=== PATIENT | female | born 1995 | race Caucasian/White ===

== ENCOUNTER 2017-06-10 22:53 | Inpatient (IN) ==
[2017-06-10 23:19] LABS: Basophils % 0.1 %; Hematocrit 40.3 % (35.3-44.9); Hemoglobin 13.8 g/dL (11.5-15.4); Immature Granulocytes % 0.3 % (0-4); Lymphocytes % 8.4 %; Mean Corpuscular HGB Conc 34.2 g/dL (31.6-35.5); Mean Corpuscular Hemoglobin 30.1 pg (28.0-33.3); Mean Corpuscular Volume 87.8 fL (83.0-100.0); Mean Platelet Volume 9.2 fL (9.4-12.4); Monocytes # 0.2 K/mcL (0.0-1.3); Monocytes % 1.7 %; Neutrophils # 10.4 K/mcL (1.6-8.9); Platelet Count 332 K/mcL (140-400); Red Blood Count 4.59 M/mcL (3.82-4.97); Red Cell Distribution Width 12.2 % (11.5-14.5); Segmented Neutrophils % 89.5 %
[2017-06-10 23:27] LABS: Bilirubin,Urine Negative (Negative); Blood,Urine Negative (Negative); Clarity,Urine Clear (Clear); Color,Urine Yellow (Yellow); Glucose,Urine (UA) 250 mg/dL (Normal); Ketones,Urine Negative (Negative); Leukocyte Esterase,Urine Negative (Negative); Nitrite,Urine Negative (Negative); PH,Urine 6.5 pH Units (5.0-8.0); Protein,Urine Negative (Neg-Trace); Specific Gravity,Urine 1.008 (1.010-1.025); Urobilinogen,Urine Normal (Normal)
[2017-06-10 23:36] LABS: Alanine Aminotransferase 22 Units/L (0-55); Albumin 3.8 g/dL (3.5-5.0); Alkaline Phosphatase 117 Units/L (38-126); Amylase 265 Units/L (25-125); Aspartate Amino Transferase 24 Units/L (5-34); BUN/Creatinine Ratio 9 (6-26); Bilirubin,Direct 0.2 mg/dL (0.0-0.5); Bilirubin,Indirect 0.2 mg/dL (0.0-1.2); Bilirubin,Total 0.4 mg/dL (0.2-1.2); Blood Urea Nitrogen 8 mg/dL (7-20); Calcium 9.4 mg/dL (8.6-10.8); Carbon Dioxide 18 mEq/L (19-29); Chloride 111 mEq/L (98-109); Globulin 3.7 g/dL (2.4-3.5); Glucose 208 mg/dL (70-99); Lipase 358 Units/L (8-78); Osmolality,Calculated 294 (280-300); Potassium 4.2 mEq/L (3.5-4.5); Sodium 140 mEq/L (136-145); Total Protein 7.5 g/dL (6.0-8.3); eGFR For African Americans > 60 (> 60); eGFR For Non-African Americans > 60 (> 60)
[2017-06-10] MEDS ORDERED: *HR* HYDROmorphone (PF) 1 MG/ML SYRINGE IVP ONE (23:43)
[2017-06-10] MEDS ORDERED: 0.9 % Sodium Chloride 1,000 ML IVC ONE (23:43)
--- NOTE | 2017-06-11 00:25 | Emergency Department Note ---
Disposition Clinical Impression: Pancreatitis Qualifiers: Chronicity: acute Pancreatitis type: unspecified pancreatitis type Acute pancreatitis complication: unspecified Qualified Code(s): K85.90 - Acute pancreatitis without necrosis or infection, unspecified Disposition: Admitted As Inpatient Condition: Good Time of Disposition: 00:59 Abdominal Pain HPI - General Chief Complaint: ED Abdominal Pain Stated Complaint: Abd/back pain s/p ERCP procedure Time Seen by Provider: 06/10/17 23:17 Source: patient Mode of arrival: ambulatory Limitations: no limitations Nursing Notes Reviewed: Yes Vital Signs Reviewed: Yes - History of Present Illness HPI Narrative: Patient presents to the ED with the chief complaint of abdominal pain. 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 Has had a previous cholecystectomy. States that the procedure was unable to be finished because her sphincter of Azam was too small. States that when she was discharged home. She had some discomfort and nausea. However , her pain has progressed to a very sharp stabbing pain radiating through to her back. She has also had nausea and vomiting. She has been able to keep down oral fluids. Denies any fever, chest pain or shortness of breath. Reports that she was told to come to the ER if her symptoms worsen. Pain Scale: 7 - Related Data Home Medications Medication Instructions Recorded Confirmed No Known Home Drugs 06/10/17 06/10/17 Allergies Allergy/AdvReac Type Severity Reaction Status Date / Time cephalexin [From Keflex] Allergy Rash Verified 06/10/17 23:01 All systems ED: reviewed and negative except as stated. 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 Psychiatric history: Reports: anxiety - Social History Smoking status: Never smoker Alcohol use: Reports: none Drug use: Reports: none Physical Exam - General Limitations: no limitations General appearance: alert, in no apparent distress - Head Head exam: atraumatic, normocephalic, normal inspection - ENT ENT exam: normal exam, normal oropharynx, mucous membranes moist - Respiratory Respiratory exam: Present: normal lung sounds bilaterally - Cardiovascular Cardiovascular exam: Present: regular rate, normal rhythm, normal heart sounds - Abdominal Exam Abdominal exam: Present: soft, tenderness, guarding. Absent: distention Abdominal tenderness: Present: epigastrium, moderate - Extremities Exam Extremities exam: Present: normal inspection, full ROM. Absent: tenderness, pedal edema - Neurological Exam Neurological exam: Present: alert, oriented X3 - Psychiatric Psychiatric exam: Present: normal affect, normal mood - Skin Skin exam: Present: warm, dry, intact, normal color Course Course Narrative: 21 -year-old female status post ERCP today. Has symptoms of pancreatitis. We will also CT abdomen to rule out perforation. Patient is guarding on exam. We will also give fluids and pain medication. Likely admission - Reevaluation(s) Reevaluation #1: CT does not show any perforation or abscess. Does show some simple free fluid, likely unrelated to her recent procedure. No CT evidence of pancreatitis, but clinically the patient does have pancreatitis, so we will admit for further evaluation. Time: 00:58 Vital Signs Temperature 98 F 06/10/17 22:57 Pulse Rate 119 06/10/17 22:57 Respiratory Rate 20 06/10/17 22:57 Blood Pressure 109/75 06/10/17 22:57 O2 Sat by Pulse Oximetry 97 06/10/17 22:57 Temperature 98 F 06/10/17 22:57 Pulse Rate 71 06/11/17 00:58 Respiratory Rate 18 06/11/17 01:44 Blood Pressure 93/58 06/11/17 01:44 O2 Sat by Pulse Oximetry 96 06/11/17 00:58 Oxygen Delivery Oxygen Delivery Room Air Abdominal Pain - Lab Data Result diagrams: 06/10/17 23:14 06/10/17 23:14 Lab Results 06/10/17 06/10/17 06/10/17 Range/Units 23:14 23:14 23:17 WBC 11.6 H (4.3-11.1) K/mcL RBC 4.59 (3.82-4.97) M/mcL Hgb 13.8 (11.5-15.4) g/dL Hct 40.3 (35.3-44.9) % MCV 87.8 (83.0-100.0) fL MCH 30.1 (28.0-33.3) pg MCHC 34.2 (31.6-35.5) g/dL RDW 12.2 (11.5-14.5) % Plt Count 332 (140-400) K/mcL MPV 9.2 L (9.4-12.4) fL Immature Gran % 0.3 (0-4) % Seg Neutrophils % 89.5 % Lymphocytes % 8.4 % Monocytes % 1.7 % Eosinophils % 0.0 % Basophils % 0.1 % Neutrophils # 10.4 H (1.6-8.9) K/mcL Lymphocytes # 1.0 (0.6-4.6) K/mcL Monocytes # 0.2 (0.0-1.3) K/mcL Eosinophils # 0.0 (0.0-0.6) K/mcL Basophils # 0.0 (0.0-0.2) K/mcL Sodium 140 (136-145) mEq/L Potassium 4.2 (3.5-4.5) mEq/L Chloride 111 H (98-109) mEq/L Carbon Dioxide 18 L (19-29) mEq/L BUN 8 (7-20) mg/dL Creatinine 0.90 (0.57-1.11) mg/dL Est GFR ( Amer) > 60 (> 60) Est GFR (Non-Af Amer) > 60 (> 60) BUN/Creatinine Ratio 9 (6-26) Glucose 208 H (70-99) mg/dL Calculated Osmolality 294 (280-300) Calcium 9.4 (8.6-10.8) mg/dL Total Bilirubin 0.4 (0.2-1.2) mg/dL Direct Bilirubin 0.2 (0.0-0.5) mg/dL Indirect Bilirubin 0.2 (0.0-1.2) mg/dL AST 24 (5-34) Units/L ALT 22 (0-55) Units/L Alkaline Phosphatase 117 (38-126) Units/L Serum Total Protein 7.5 (6.0-8.3) g/dL Albumin 3.8 (3.5-5.0) g/dL Globulin 3.7 H (2.4-3.5) g/dL Albumin/Globulin Ratio 1.0 L (1.1-2.2) Amylase 265 H (25-125) Units/L Lipase 358 H (8-78) Units/L Urine Color (Yellow) Urine Clarity (Clear) Urine pH (5.0-8.0) pH Units Ur Specific Junction (1.010-1.025) Urine Protein (Neg-Trace) mg/dL Urine Glucose (UA) (Normal) mg/dL Urine Ketones (Negative) mg/dL Urine Blood (Negative) Urine Nitrite (Negative) Urine Bilirubin (Negative) Urine Urobilinogen (Normal) mg/dL Ur Leukocyte Esterase (Negative) Ur Culture Indicated? (NO) Urine Test Negative (Negative) 06/10/17 Range/Units 23:19 WBC (4.3-11.1) K/mcL RBC (3.82-4.97) M/mcL Hgb (11.5-15.4) g/dL Hct (35.3-44.9) % MCV (83.0-100.0) fL MCH (28.0-33.3) pg MCHC (31.6-35.5) g/dL RDW (11.5-14.5) % Plt Count (140-400) K/mcL MPV (9.4-12.4) fL Immature Gran % (0-4) % Seg Neutrophils % % Lymphocytes % % Monocytes % % Eosinophils % % Basophils % % Neutrophils # (1.6-8.9) K/mcL Lymphocytes # (0.6-4.6) K/mcL Monocytes # (0.0-1.3) K/mcL Eosinophils # (0.0-0.6) K/mcL Basophils # (0.0-0.2) K/mcL Sodium (136-145) mEq/L Potassium (3.5-4.5) mEq/L Chloride (98-109) mEq/L Carbon Dioxide (19-29) mEq/L BUN (7-20) mg/dL Creatinine (0.57-1.11) mg/dL Est GFR ( Amer) (> 60) Est GFR (Non-Af Amer) (> 60) BUN/Creatinine Ratio (6-26) Glucose (70-99) mg/dL Calculated Osmolality (280-300) Calcium (8.6-10.8) mg/dL Total Bilirubin (0.2-1.2) mg/dL Direct Bilirubin (0.0-0.5) mg/dL Indirect Bilirubin (0.0-1.2) mg/dL AST (5-34) Units/L ALT (0-55) Units/L Alkaline Phosphatase (38-126) Units/L Serum Total Protein (6.0-8.3) g/dL Albumin (3.5-5.0) g/dL Globulin (2.4-3.5) g/dL Albumin/Globulin Ratio (1.1-2.2) Amylase (25-125) Units/L Lipase (8-78) Units/L Urine Color Yellow (Yellow) Urine Clarity Clear (Clear) Urine pH 6.5 (5.0-8.0) pH Units Ur Specific Junction 1.008 L (1.010-1.025) Urine Protein Negative (Neg-Trace) mg/dL Urine Glucose (UA) 250 H (Normal) mg/dL Urine Ketones Negative (Negative) mg/dL Urine Blood Negative (Negative) Urine Nitrite Negative (Negative) Urine Bilirubin Negative (Negative) Urine Urobilinogen Normal (Normal) mg/dL Ur Leukocyte Esterase Negative (Negative) Ur Culture Indicated? NO (NO) Urine Test (Negative) Attestation Statement - Attestation Attestation: I, Inderjit Salazar, examined this patient and my medical decision-making was reviewed with the FIELD SERVICE REPRESENTATIVE/PA/Advanced Practice Nurse/Resident Physician. I agree with the documented findings, disposition and treatment plan as described except to the extent set forth below. 21-year-old female presents to emergency Department with concerns of abdominal pain. Patient states her pain is in the epigastrium and constant. Patient had an ERCP performed today for stenting of her sphincter Oddi however he was unable to be performed secondary to the size of the opening. Patient started developing increasing epigastric pain after the procedure. She denies fever, syncope, chest pain, palpitations. CT of the abdomen and pelvis does not show evidence of pneumoperitoneum. Patient does have an elevated lipase and she will be treated with pain medication and IV fluids.
[2017-06-11] MEDS ORDERED: *HR* Morphine 2 MG/ML SYRINGE IVP ONE (04:11)
[2017-06-11] MEDS ORDERED: Ondansetron 4 MG/2 ML VIAL IM ONE (04:12)
[2017-06-11] MEDS ORDERED: *HR* Morphine 2 MG/ML SYRINGE IVP PRN ×2 (07:41→07:47)
[2017-06-11] MEDS ORDERED: Naloxone 0.4 MG/ML INJ IVP PRN (07:47)
[2017-06-11] MEDS ORDERED: Acetaminophen 325 MG TABLET PO PRN (07:47)
[2017-06-11] MEDS ORDERED: HydrOXYzine SYP 10 MG/5 ML UDC PO PRN (07:50)
--- NOTE | 2017-06-11 07:53 | Internal Med History&Physical ---
Date of Encounter: 06/11/17 Time of Encounter: 07:51 Assessment and Plan (1) Pancreatitis Current visit: Yes Status: Acute Acute mild post ERCP pancreatitis May try clear liquids, back to nothing by mouth if not tolerating diet Start IV hydration, monitor lipase Morphine for pain, Zofran as needed Protonix IV for GI prophylaxis and early ambulation for DVT prophylaxis. The patient will be admitted for observation. Full code. Time spent this admission 40 minutes. Qualifiers: Chronicity: acute Pancreatitis type: unspecified pancreatitis type Acute pancreatitis complication: unspecified Qualified Code(s): K85.90 - Acute pancreatitis without necrosis or infection, unspecified (2) Sphincter of Oddi dysfunction Current visit: Yes Status: Acute Follow up as outpatient with GI (3) Anxiety Current visit: Yes Status: Acute Atarax as needed (4) GERD (gastroesophageal reflux disease) Current visit: Yes Status: Acute Protonix IV Qualifiers: Esophagitis presence: without esophagitis Qualified Code(s): K21.9 - Gastro -esophageal reflux disease without esophagitis (5) Leukocytosis Current visit: Yes Status: Acute Qualifiers: Leukocytosis type: unspecified Qualified Code(s): D72.829 - Elevated white blood cell count, unspecified (6) Hyperglycemia Current visit: Yes Status: Acute Likely related to pancreatitis Internal Medicine - H&P: HPI Chief complaint: Abdominal pain Admitted From: Emergency Dept History of present illness: Ms. Ding is a 21 year old female with a past medical history of Oddi's sphincter dysfunction, gastritis, GERD, anxiety who came to the emergency room complaining of severe abdominal pain that started to get worse yesterday. She had an ERCP, unfortunately the procedure was not able to be completed as her sphincter of Oddi was too small/unable to cross the CBD. The pain started to get worse around 6 PM, she was complaining of constant nausea bundle cell count was 11.6 CO2 18 glucose 208 [address]ase [address] scan of the abdomen did not show any acute pancreatitis but showed some small free fluid in the pelvis. Patient was very symptomatic complaining of epigastric pain radiating to the back 6 out of 10 in intensity accompanied with some nausea and episodic diarrhea. Blood pressure was 90/59. The patient still complain of severe pain and was not able to keep anything down causes of the pain. No fevers, no headaches. Past Med Surg Social Fam HX - Past Medical History Medical history: asthma, GERD, other (Oddi's sphincter dysfunction, anxiety, hyperhidrosis, nephrolithiasis, gastritis) Psychiatric history: anxiety - Past Surgical History Surgical History: cholecystectomy, other (Left knee surgery, tonsillectomy, adenoidectomy) - Social History Smoking Status: Never smoker Smokeless Tobacco Status: No Alcohol use: none Drug use: none - Family History Mother Adopted: [place]: GIOVANNI Age: 47 Family Member Ethnicity: Non- Living Status: Still Living Hx Family Cardiac Disorders: No Hx Family Respiratory Disorders: No Hx Family Cancer: Yes (CERVICAL) Hx Family GI Disorders: No Hx Family Genitourinary Disorders: No Hx Family Endocrine Disorder: Yes (THYROID PROBLEMS) Hx Family Musculoskeletal Disorders: No Hx Family Neuromuscular Disorders: No Hx Family Neurologic Disorders: No Hx Family HEENT Disorders: No Hx Family Autoimmune Disorders: No Hx Family Reproductive Disorders: No Hx Family Psychosocial Disorders: No Hx Family Medical Disorders: No - Additional Family History Additional family history: Brother with Asperger's, father hypertension and borderline diabetes. Mother with hypothyroidism and depression fibromyalgia kidney stones uterine and cervical cancer Internal Medicine - H&P: Meds No Known Home Drugs 06/10/17 [History] 3 Allergy/AdvReac Type Severity Reaction Status Date / Time cephalexin [From Keflex] Allergy Rash Verified 06/10/17 23:01 All Systems PM: A 10-system review of systems was performed and is negative for pertinent findings except as documented above in the HPI. Review of systems: Denies any chest or shortness of breath, other systems out of the 10 review were negative - Constitutional Vitals: Temp Pulse Resp BP Pulse Ox 98.0 F 56 16 95/58 98 06/11/17 07:24 06/11/17 07:24 06/11/17 07:24 06/11/17 07:24 06/11/17 07:24 General appearance: Present: A&O X 3 (Dry mucosa) - Head Head exam: Present: atraumatic, normocephalic - Eye Eye exam: Present: PERRL, conjuntiva pink, sclera anicteric Pupils: Present: PERRL - Neck Neck exam general surgery: Present: supple, trachea midline. Absent: lymphadenopathy - Respiratory Respiratory exam: Present: CTAB. Absent: accessory muscle use, rales, rhonchi, wheezes - Cardiovascular Cardiovascular exam: Present: RRR, +S1, +S2. Absent: diastolic murmur, gallop, rubs, systolic murmur - GI/Abdominal GI/Abdominal exam: Present: normal bowel sounds, soft, tenderness (Epigastric tenderness, no rebound), no peritoneal signs. Absent: distended - Extremities Exam Extremities exam: Present: warm, radial pulses palpable and symmetrical. Absent : calf tenderness, cyanotic, pedal edema - Neurological Exam Neurological exam: Present: CN II-XII intact, oriented X3, no focal deficits. Absent: pronater drift, facial droop, speech deficit - Skin Skin exam: Present: dry, intact Internal Med - H&P Results - Labs CBC & Chem 7: 06/10/17 23:14 06/10/17 23:14 - Impressions ITS Impressions Abdomen/Pelvis CT 06/11/17 23:43 IMPRESSION: 1. Small simple free fluid in the pelvis. This may be physiologic in this patient age group. Otherwise, unremarkable examination. No CT evidence of pancreatitis or peripancreatic fluid collection. D/ / 06/11/2017 07:06:41 José Miguel Clark MD / paulette Interpreting Provider: José Miguel Clark MD
[2017-06-11] MEDS: Pantoprazole 40 MG VIAL IVP SCH (08:38)
[2017-06-11] MEDS: *HR* Morphine 2 MG/ML SYRINGE IVP PRN ×4 (08:39→20:25)
[2017-06-11] MEDS: 0.9 % Sodium Chloride 1,000 ML IVC SCH ×2 (08:39→20:25)
[2017-06-11] MEDS: Ondansetron 4 MG/2 ML VIAL IVP PRN ×4 (08:39→21:12)
--- NOTE | 2017-06-11 14:59 | Event Note ---
Date of Encounter: 06/11/17 Time of Encounter: 15:00 Pt seen, with epigastric/upper back pain. O/E Tander epigastric area. A;Post ERCP apncraetitis Rec: IV fluids, pain control, nPO
[2017-06-12] MEDS: *HR* Morphine 2 MG/ML SYRINGE IVP PRN ×5 (00:47→20:49)
[2017-06-12] MEDS: 0.9 % Sodium Chloride 1,000 ML IVC SCH ×5 (02:05→21:56)
[2017-06-12] MEDS: Ondansetron 4 MG/2 ML VIAL IVP PRN ×4 (02:07→20:48)
[2017-06-12 05:26] LABS: Hematocrit 32.1 % (35.3-44.9); Mean Corpuscular HGB Conc 32.4 g/dL (31.6-35.5); Mean Corpuscular Hemoglobin 29.7 pg (28.0-33.3); Mean Corpuscular Volume 91.7 fL (83.0-100.0); Mean Platelet Volume 9.6 fL (9.4-12.4); Platelet Count 222 K/mcL (140-400); Red Cell Distribution Width 12.8 % (11.5-14.5)
[2017-06-12 05:29] LABS: Hemoglobin 10.4 g/dL (11.5-15.4)
[2017-06-12 05:38] LABS: BUN/Creatinine Ratio 14 (6-26); Blood Urea Nitrogen 10 mg/dL (7-20); Carbon Dioxide 23 mEq/L (19-29); Chloride 114 mEq/L (98-109); Cholesterol 98 mg/dL (< 200); Glucose 82 mg/dL (70-99); HDL Cholesterol 33 mg/dL (40-59); LDL Cholesterol,Calculated 40 mg/dL (0-99); Lipase 90 Units/L (8-78); Osmolality,Calculated 288 (280-300); Potassium 3.7 mEq/L (3.5-4.5); Sodium 140 mEq/L (136-145); Triglycerides 126 mg/dL (< 150); eGFR For African Americans > 60 (> 60); eGFR For Non-African Americans > 60 (> 60)
[2017-06-12 05:45] LABS: Calcium 7.9 mg/dL (8.6-10.8)
--- NOTE | 2017-06-12 08:42 | Internal Med Progress Note ---
Date of Encounter: 06/12/17 Time of Encounter: 08:40 - Assessment and plan (1) Pancreatitis Current Visit: Yes Status: Acute Assessment and plan: May try clear liquids when improving, back to nothing by mouth as she is not tolerating diet Continue IV hydration Morphine for pain, Zofran as needed Protonix IV for GI prophylaxis Qualifiers: Chronicity: acute Pancreatitis type: unspecified pancreatitis type Acute pancreatitis complication: unspecified Qualified Code(s): K85.90 - Acute pancreatitis without necrosis or infection, unspecified (2) Sphincter of Oddi dysfunction Current Visit: Yes Status: Acute Assessment and plan: Followed by GI (3) Anxiety Current Visit: Yes Status: Acute Assessment and plan: Atarax as needed (4) GERD (gastroesophageal reflux disease) Current Visit: Yes Status: Acute Assessment and plan: Protonix IV Qualifiers: Esophagitis presence: without esophagitis Qualified Code(s): K21.9 - Gastro -esophageal reflux disease without esophagitis (5) Leukocytosis Current Visit: Yes Status: Acute Qualifiers: Leukocytosis type: unspecified Qualified Code(s): D72.829 - Elevated white blood cell count, unspecified (6) Hyperglycemia Current Visit: Yes Status: Acute Assessment and plan: Likely secondary to pancreatitis, resolved - Subjective Interval history: Epigastric pain has increased to 7 out of 10, pain is radiating to the back. Feels very nauseous, denies any fevers or chills no chest pain or shortness of breath, had diarrhea before - Constitutional Vitals: Temp Pulse Resp BP Pulse Ox 98.3 F 72 14 100/62 94 06/12/17 07:50 06/12/17 07:50 06/12/17 07:50 06/12/17 07:50 06/12/17 07:50 General appearance: Present: A&O X 3 (Dry mucosa) - Head Head exam: Present: atraumatic, normocephalic - Eye Eye exam: Present: PERRL, conjuntiva pink, sclera anicteric Pupils: Present: PERRL - Neck Neck exam general surgery: Present: supple, trachea midline. Absent: lymphadenopathy - Respiratory Respiratory exam: Present: CTAB. Absent: accessory muscle use, rales, rhonchi, wheezes - Cardiovascular Cardiovascular exam: Present: RRR, +S1, +S2. Absent: diastolic murmur, gallop, rubs, systolic murmur - GI/Abdominal GI/Abdominal exam: Present: distended, normal bowel sounds, soft, tenderness ( Epigastric tenderness, no rebound), no peritoneal signs - Extremities Exam Extremities exam: Present: warm, radial pulses palpable and symmetrical. Absent : calf tenderness, cyanotic, pedal edema - Neurological Exam Neurological exam: Present: CN II-XII intact, oriented X3, no focal deficits. Absent: pronater drift, facial droop, speech deficit - Skin Skin exam: Present: dry, intact Internal Medicine: Result - Labs CBC & Chem 7: 06/12/17 04:27 06/12/17 04:27 Labs: Short CBC 06/12/17 Range/Units 04:27 WBC 12.5 H (4.3-11.1) K/mcL Hgb 10.4 L D (11.5-15.4) g/dL Hct 32.1 L (35.3-44.9) % Plt Count 222 (140-400) K/mcL BMP 06/12/17 04:27 Sodium 140 Potassium 3.7 Chloride 114 H Carbon Dioxide 23 BUN 10 Creatinine 0.74 Glucose 82 Calcium 7.9 L D Consult Discharge Plan - Plan Referrals: Adri Aguilera, AIR CONDITIONER INSTALLER HELPER [Primary Care Provider] -
[2017-06-12] MEDS: Pantoprazole 40 MG VIAL IVP SCH (09:19)
[2017-06-12] MEDS: Azithromycin 500 MG in D5% in Water 250 ML IVPB SCH (14:23)
[2017-06-12] MEDS: Ampicillin/Sulbactam 1,500 MG in 0.9 % Sodium Chloride Mini Bag 100 ML IVPB SCH ×2 (14:41→20:46)
[2017-06-12] MEDS ORDERED: *HR* Promethazine 25 MG/ML VIAL IVP PRN (16:35)
[2017-06-12] MEDS ORDERED: Ampicillin/Sulbactam 1,500 MG in 0.9 % Sodium Chloride Mini Bag 100 ML IVPB SCH (18:00)
[2017-06-13] MEDS: 0.9 % Sodium Chloride 1,000 ML IVC SCH ×3 (00:34→08:27)
[2017-06-13] MEDS: Ampicillin/Sulbactam 1,500 MG in 0.9 % Sodium Chloride Mini Bag 100 ML IVPB SCH ×4 (02:45→20:17)
[2017-06-13] MEDS: *HR* Morphine 2 MG/ML SYRINGE IVP PRN ×2 (02:52→20:17)
[2017-06-13] MEDS: Ondansetron 4 MG/2 ML VIAL IVP PRN ×2 (02:53→12:19)
[2017-06-13 05:38] LABS: Hematocrit 32.6 % (35.3-44.9); Hemoglobin 10.8 g/dL (11.5-15.4); Mean Corpuscular HGB Conc 33.1 g/dL (31.6-35.5); Mean Corpuscular Hemoglobin 29.5 pg (28.0-33.3); Mean Corpuscular Volume 89.1 fL (83.0-100.0); Mean Platelet Volume 9.4 fL (9.4-12.4); Platelet Count 237 K/mcL (140-400); Red Blood Count 3.66 M/mcL (3.82-4.97); Red Cell Distribution Width 12.3 % (11.5-14.5)
[2017-06-13 05:56] LABS: BUN/Creatinine Ratio 10 (6-26); Blood Urea Nitrogen 7 mg/dL (7-20); Carbon Dioxide 23 mEq/L (19-29); Chloride 109 mEq/L (98-109); Glucose 80 mg/dL (70-99); Osmolality,Calculated 285 (280-300); Potassium 3.5 mEq/L (3.5-4.5); Sodium 139 mEq/L (136-145); eGFR For African Americans > 60 (> 60); eGFR For Non-African Americans > 60 (> 60)
[2017-06-13] MEDS: Pantoprazole 40 MG VIAL IVP SCH (08:22)
--- NOTE | 2017-06-13 09:23 | Internal Med Progress Note ---
Date of Encounter: 06/13/17 Time of Encounter: 09:21 - Assessment and plan (1) Aspiration pneumonia Current Visit: Yes Status: Acute Assessment and plan: Acute hypoxic respiratory failure secondary to aspiration pneumonia, likely present upon admission as a result of intubation at the time of ERCP Continue Unasyn and azithromycin day 2 Oxygen therapy IV fluids Oxygen saturation dropped to 89%, chest x-ray showed patchy opacities in the right lower lobe compatible with possible aspiration pneumonia Qualifiers: Aspiration pneumonia type: unspecified Laterality: right Lung location: lower lobe of lung Qualified Code(s): J69.0 - Pneumonitis due to inhalation of food and vomit (2) Acute respiratory failure with hypoxia Current Visit: Yes Status: Acute (3) Pancreatitis Current Visit: Yes Status: Acute Assessment and plan: May try full liquids , back to nothing by mouth if she is not tolerating diet Continue IV hydration Morphine for pain, Zofran as needed Protonix IV for GI prophylaxis Qualifiers: Chronicity: acute Pancreatitis type: unspecified pancreatitis type Acute pancreatitis complication: unspecified Qualified Code(s): K85.90 - Acute pancreatitis without necrosis or infection, unspecified (4) Sphincter of Oddi dysfunction Current Visit: Yes Status: Acute Assessment and plan: Followed by GI (5) Anxiety Current Visit: Yes Status: Acute Assessment and plan: Atarax as needed (6) GERD (gastroesophageal reflux disease) Current Visit: Yes Status: Acute Assessment and plan: Protonix IV Qualifiers: Esophagitis presence: without esophagitis Qualified Code(s): K21.9 - Gastro -esophageal reflux disease without esophagitis (7) Leukocytosis Current Visit: Yes Status: Acute Qualifiers: Leukocytosis type: unspecified Qualified Code(s): D72.829 - Elevated white blood cell count, unspecified (8) Hyperglycemia Current Visit: Yes Status: Acute Assessment and plan: Likely secondary to pancreatitis, resolved - Subjective Interval history: Still requiring oxygen. Less SOB. Epigastric pain is 4 out of 10, pain is radiating to the back. Feels nauseous , denies any fevers or chills no chest pain , had diarrhea before - Constitutional Vitals: Temp Pulse Resp BP Pulse Ox 98.5 F 75 16 100/67 98 06/13/17 06:55 06/13/17 06:55 06/13/17 06:55 06/13/17 06:55 06/13/17 06:55 General appearance: Present: A&O X 3 (Dry mucosa) - Head Head exam: Present: atraumatic, normocephalic - Eye Eye exam: Present: PERRL, conjuntiva pink, sclera anicteric Pupils: Present: PERRL - Neck Neck exam general surgery: Present: supple, trachea midline. Absent: lymphadenopathy - Respiratory Respiratory exam: Present: decreased breath sounds (Blunted breath sounds in the right base), CTAB. Absent: accessory muscle use, rales, rhonchi, wheezes - Cardiovascular Cardiovascular exam: Present: RRR, +S1, +S2. Absent: diastolic murmur, gallop, rubs, systolic murmur - GI/Abdominal GI/Abdominal exam: Present: normal bowel sounds, soft, tenderness (Mild epigastric tenderness), no peritoneal signs. Absent: distended - Extremities Exam Extremities exam: Present: warm, radial pulses palpable and symmetrical. Absent : calf tenderness, cyanotic, pedal edema - Neurological Exam Neurological exam: Present: CN II-XII intact, oriented X3, no focal deficits. Absent: pronater drift, facial droop, speech deficit - Skin Skin exam: Present: dry, intact Internal Medicine: Result - Labs CBC & Chem 7: 06/13/17 05:07 06/13/17 05:07 Labs: Short CBC 06/13/17 Range/Units 05:07 WBC 12.9 H (4.3-11.1) K/mcL Hgb 10.8 L (11.5-15.4) g/dL Hct 32.6 L (35.3-44.9) % Plt Count 237 (140-400) K/mcL BMP 06/13/17 05:07 Sodium 139 Potassium 3.5 Chloride 109 Carbon Dioxide 23 BUN 7 Creatinine 0.72 Glucose 80 Calcium 8.0 L - Impressions Impressions Chest X-Ray 06/12/17 12:14 IMPRESSION: Patchy opacities within right lower lobe may represent atelectasis, aspiration, and/or pneumonia. This is new since CT abdomen 1 day prior. D/ / Sergio Colon MD / Sergio Colon MD Interpreting Provider: Sergio Colon MD Consult Discharge Plan - Plan Referrals: Adri Aguilera, ALEXIA [Primary Care Provider] -
[2017-06-13] MEDS: Azithromycin 500 MG in D5% in Water 250 ML IVPB SCH (15:40)
[2017-06-14] MEDS: 0.9 % Sodium Chloride 1,000 ML IVC SCH (00:34)
[2017-06-14] MEDS: *HR* Morphine 2 MG/ML SYRINGE IVP PRN ×2 (00:35→08:07)
[2017-06-14] MEDS: Ampicillin/Sulbactam 1,500 MG in 0.9 % Sodium Chloride Mini Bag 100 ML IVPB SCH ×4 (03:39→21:52)
[2017-06-14 05:01] LABS: Hematocrit 34.8 % (35.3-44.9); Mean Corpuscular HGB Conc 34.5 g/dL (31.6-35.5); Mean Corpuscular Hemoglobin 29.8 pg (28.0-33.3); Mean Corpuscular Volume 86.4 fL (83.0-100.0); Mean Platelet Volume 9.1 fL (9.4-12.4); Platelet Count 257 K/mcL (140-400); Red Blood Count 4.03 M/mcL (3.82-4.97); Red Cell Distribution Width 11.9 % (11.5-14.5)
[2017-06-14 05:13] LABS: BUN/Creatinine Ratio 8 (6-26); Blood Urea Nitrogen 6 mg/dL (7-20); Calcium 8.8 mg/dL (8.6-10.8); Carbon Dioxide 24 mEq/L (19-29); Chloride 107 mEq/L (98-109); Glucose 99 mg/dL (70-99); Osmolality,Calculated 282 (280-300); Potassium 3.6 mEq/L (3.5-4.5); Sodium 137 mEq/L (136-145); eGFR For African Americans > 60 (> 60); eGFR For Non-African Americans > 60 (> 60)
[2017-06-14 06:09] LABS: Lipase 20 Units/L (8-78)
[2017-06-14] MEDS: Ondansetron 4 MG/2 ML VIAL IVP PRN ×2 (08:08→14:51)
[2017-06-14] MEDS: Pantoprazole 40 MG VIAL IVP SCH (08:16)
[2017-06-14] MEDS ORDERED: OxyCODONE CONC 5 MG/0.25 ML ORAL.SYG PO PRN (08:22)
--- NOTE | 2017-06-14 08:25 | Internal Med Progress Note ---
Date of Encounter: 06/14/17 Time of Encounter: 08:23 - Assessment and plan (1) Aspiration pneumonia Current Visit: Yes Status: Acute Assessment and plan: Acute hypoxic respiratory failure secondary to aspiration pneumonia, likely present upon admission as a result of intubation at the time of ERCP Continue Unasyn and azithromycin day 3 Oxygen therapy Discontinue IV fluids Oxygen saturation dropped to 89%, chest x-ray showed patchy opacities in the right lower lobe compatible with possible aspiration pneumonia Qualifiers: Aspiration pneumonia type: unspecified Laterality: right Lung location: lower lobe of lung Qualified Code(s): J69.0 - Pneumonitis due to inhalation of food and vomit (2) Acute respiratory failure with hypoxia Current Visit: Yes Status: Acute (3) Pancreatitis Current Visit: Yes Status: Acute Assessment and plan: Advance diet, will go back to nothing by mouth if she is not tolerating diet Morphine for pain, Zofran as needed Protonix IV for GI prophylaxis Qualifiers: Chronicity: acute Pancreatitis type: unspecified pancreatitis type Acute pancreatitis complication: unspecified Qualified Code(s): K85.90 - Acute pancreatitis without necrosis or infection, unspecified (4) Sphincter of Oddi dysfunction Current Visit: Yes Status: Acute Assessment and plan: Followed by GI (5) Anxiety Current Visit: Yes Status: Acute Assessment and plan: Atarax as needed (6) GERD (gastroesophageal reflux disease) Current Visit: Yes Status: Acute Assessment and plan: Protonix IV Qualifiers: Esophagitis presence: without esophagitis Qualified Code(s): K21.9 - Gastro -esophageal reflux disease without esophagitis (7) Leukocytosis Current Visit: Yes Status: Acute Qualifiers: Leukocytosis type: unspecified Qualified Code(s): D72.829 - Elevated white blood cell count, unspecified (8) Hyperglycemia Current Visit: Yes Status: Acute Assessment and plan: Likely secondary to pancreatitis, resolved - Subjective Interval history: Feeling Less SOB.. Still requiring oxygen. Epigastric pain better controlled, radiating to the back. Feels nauseous, denies any fevers or chills no chest pain , had diarrhea before - Constitutional Vitals: Temp Pulse Resp BP Pulse Ox 97.6 F 69 18 113/80 96 06/14/17 07:34 06/14/17 07:34 06/14/17 07:34 06/14/17 07:34 06/14/17 07:34 General appearance: Present: A&O X 3 (Dry mucosa) - Head Head exam: Present: atraumatic, normocephalic - Eye Eye exam: Present: PERRL, conjuntiva pink, sclera anicteric Pupils: Present: PERRL - Neck Neck exam general surgery: Present: supple, trachea midline. Absent: lymphadenopathy - Respiratory Respiratory exam: Present: decreased breath sounds (Bunted breath sounds in the right base are improving), CTAB. Absent: accessory muscle use, rales, rhonchi, wheezes - Cardiovascular Cardiovascular exam: Present: RRR, +S1, +S2. Absent: diastolic murmur, gallop, rubs, systolic murmur - GI/Abdominal GI/Abdominal exam: Present: normal bowel sounds, soft, tenderness (Minimal epigastric tenderness, no rebound), no peritoneal signs. Absent: distended - Extremities Exam Extremities exam: Present: warm, radial pulses palpable and symmetrical. Absent : calf tenderness, cyanotic, pedal edema - Neurological Exam Neurological exam: Present: CN II-XII intact, oriented X3, no focal deficits. Absent: pronater drift, facial droop, speech deficit - Skin Skin exam: Present: dry, intact Internal Medicine: Result - Labs CBC & Chem 7: 06/14/17 04:43 06/14/17 04:43 Labs: Short CBC 06/14/17 Range/Units 04:43 WBC 10.2 (4.3-11.1) K/mcL Hgb 12.0 (11.5-15.4) g/dL Hct 34.8 L (35.3-44.9) % Plt Count 257 (140-400) K/mcL [facility] 06/14/17 04:43 Sodium 137 Potassium 3.6 Chloride 107 Carbon Dioxide 24 BUN 6 L Creatinine 0.72 Glucose 99 Calcium 8.8 Consult Discharge Plan - Plan Referrals: Adri Aguilera CNP [Primary Care Provider] - 06/20/17 2:00 pm
[2017-06-14] MEDS: Azithromycin 500 MG in D5% in Water 250 ML IVPB SCH (14:16)
[2017-06-15] MEDS: *HR* Morphine 2 MG/ML SYRINGE IVP PRN (00:49)
[2017-06-15] MEDS: Ondansetron 4 MG/2 ML VIAL IVP PRN (00:49)
[2017-06-15] MEDS: Ampicillin/Sulbactam 1,500 MG in 0.9 % Sodium Chloride Mini Bag 100 ML IVPB SCH ×2 (03:10→08:11)
[2017-06-15 03:52] LABS: Hematocrit 37.3 % (35.3-44.9); Mean Corpuscular HGB Conc 34.9 g/dL (31.6-35.5); Mean Corpuscular Hemoglobin 30.1 pg (28.0-33.3); Mean Corpuscular Volume 86.3 fL (83.0-100.0); Mean Platelet Volume 9.3 fL (9.4-12.4); Platelet Count 297 K/mcL (140-400); Red Blood Count 4.32 M/mcL (3.82-4.97)
[2017-06-15 04:06] LABS: BUN/Creatinine Ratio 13 (6-26); Blood Urea Nitrogen 9 mg/dL (7-20); Calcium 9.2 mg/dL (8.6-10.8); Carbon Dioxide 24 mEq/L (19-29); Chloride 108 mEq/L (98-109); Glucose 83 mg/dL (70-99); Osmolality,Calculated 286 (280-300); Potassium 3.7 mEq/L (3.5-4.5); Sodium 139 mEq/L (136-145); eGFR For African Americans > 60 (> 60); eGFR For Non-African Americans > 60 (> 60)
[2017-06-15 07:25] VITALS: BP 104/71
[2017-06-15] MEDS: Pantoprazole 40 MG VIAL IVP SCH (08:12)
--- NOTE | 2017-06-15 10:42 | Discharge Summary ---
Date of Encounter: 06/15/17 Time of Encounter: 10:38 - Discharge Diagnosis (1) Aspiration pneumonia Priority: Primary Status: Acute Comments: Acute hypoxic respiratory failure secondary to aspiration pneumonia, likely present upon admission as a result of intubation at the time of ERCP Qualifiers: Aspiration pneumonia type: unspecified Laterality: right Lung location: lower lobe of lung Qualified Code(s): J69.0 - Pneumonitis due to inhalation of food and vomit (2) Acute respiratory failure with hypoxia Priority: Primary Status: Acute (3) Pancreatitis Priority: Primary Status: Acute Comments: pancreatitis post ERCP Qualifiers: Chronicity: acute Pancreatitis type: unspecified pancreatitis type Acute pancreatitis complication: unspecified Qualified Code(s): K85.90 - Acute pancreatitis without necrosis or infection, unspecified (4) Sphincter of Oddi dysfunction Priority: Secondary Status: Acute (5) Anxiety Priority: Secondary Status: Acute (6) GERD (gastroesophageal reflux disease) Priority: Secondary Status: Acute Qualifiers: Esophagitis presence: without esophagitis Qualified Code(s): K21.9 - Gastro -esophageal reflux disease without esophagitis (7) Leukocytosis Priority: Secondary Status: Acute Qualifiers: Leukocytosis type: unspecified Qualified Code(s): D72.829 - Elevated white blood cell count, unspecified (8) Hyperglycemia Priority: Secondary Status: Acute - Discharge Medications Prescriptions: Amoxicillin/Clavulanate [Augmentin] 875 mg PO BIDWM #8 tablet Omeprazole [PriLOSEC] 40 mg PO DAILY #30 cap Home Medications: Amoxicillin/Clavulanate [Augmentin] 875 mg PO BIDWM #8 tablet 06/15/17 [Rx] Omeprazole [PriLOSEC] 40 mg PO DAILY #30 cap 06/15/17 [Rx] Allergies/Adverse Reactions: 3 Allergy/AdvReac Type Severity Reaction Status Date / Time cephalexin [From Keflex] Allergy Rash Verified 06/10/17 23:01 Date of admission: 06/12/17 08:47 Primary care physician: Adri Aguilera CNP - Patient Status Disposition: Home, Self-Care Condition: Good Overall status at discharge: patient is progressing back to baseline - Discharge Instructions Follow Up With: Adri Aguilera CNP [Primary Care Provider] - 06/20/17 2:00 pm Additional Instructions: Follow-up with primary care physician within the next 7 days. Complete 4 more days of Augmentin. Follow up with GI within the next 1-2 weeks - Diet and Activity Activity: increase activity as tolerated Diet: regular diet Hospital course: Ms. Ding is a 21 year old female with a past medical history of Oddi's sphincter dysfunction, gastritis, GERD, anxiety who came to the emergency room complaining of severe abdominal pain that started to get worse . She had an ERCP, unfortunately the procedure was not able to be completed as her sphincter of Oddi was too small/unable to cross the CBD. The pain started to get worse around 6 PM, she was complaining of constant nausea bundle cell count was 11.6 CO2 18 glucose 208 lipase [address] scan of the abdomen did not show any acute pancreatitis but showed some small free fluid in the pelvis. Patient was very symptomatic complaining of epigastric pain radiating to the back 6 out of 10 in intensity accompanied with some nausea and episodic diarrhea. Blood pressure was 90/59. Amylase was 265. During her hospitalization, the patient became hypoxic down to 89 even on oxygen. The chest x-ray demonstrated a right lower lobe pneumonia possibly from aspiration. She was started on Unasyn. White blood cell count peaked at 12.9, today is 8.7. The patient also was started on azithromycin and completed 3 doses of 500 mg IV. She is a stable to be discharged today, complaining of minimal abdominal pain. - Time Spent with Patient Total time spent providing and/or coordinating discharge services: Greater than 30 minutes (40 min) - Constitutional Vitals: Temp Pulse Resp BP Pulse Ox 97.8 F 74 16 104/71 95 06/15/17 07:22 06/15/17 07:22 06/15/17 07:22 06/15/17 07:22 06/15/17 07:22 General appearance: Present: A&O X 3 (Dry mucosa) - Head Head exam: Present: atraumatic, normocephalic - Eye Eye exam: Present: PERRL, conjuntiva pink, sclera anicteric Pupils: Present: PERRL - Neck Neck exam general surgery: Present: supple, trachea midline. Absent: lymphadenopathy - Respiratory Respiratory exam: Present: decreased breath sounds (Decreased breath sounds on the right base), CTAB. Absent: accessory muscle use, rales, rhonchi, wheezes - Cardiovascular Cardiovascular exam: Present: RRR, +S1, +S2. Absent: diastolic murmur, gallop, rubs, systolic murmur - GI/Abdominal GI/Abdominal exam: Present: normal bowel sounds, soft, tenderness (Mild epigastric tenderness), no peritoneal signs. Absent: distended - Extremities Exam Extremities exam: Present: warm, radial pulses palpable and symmetrical. Absent : calf tenderness, cyanotic, pedal edema - Neurological Exam Neurological exam: Present: CN II-XII intact, oriented X3, no focal deficits. Absent: pronater drift, facial droop, speech deficit - Skin Skin exam: Present: dry, intact
== END 2017-06-15 12:00 | disposition home or self-care (01) | DRG 438 ==
LOC: EMEROO 22:53 → 3BNU 22:53 → SUATTDRO 06-11 01:30 → 3BNU 06-11 02:05
PROVIDERS: ADMIT Internal Medicine; ATTEND Internal Medicine

== ENCOUNTER 2017-08-09 16:54 | Inpatient (IN) ==
[2017-08-09 18:01] LABS: Basophils % 0.2 %; Eosinophils % 0.1 %; Hematocrit 39.8 % (35.3-44.9); Hemoglobin 13.1 g/dL (11.5-15.4); Immature Granulocytes % 0.6 % (0-4); Lymphocytes # 2.2 K/mcL (0.6-4.6); Lymphocytes % 9.2 %; Mean Corpuscular HGB Conc 32.9 g/dL (31.6-35.5); Mean Corpuscular Hemoglobin 29.2 pg (28.0-33.3); Mean Corpuscular Volume 88.6 fL (83.0-100.0); Mean Platelet Volume 9.3 fL (9.4-12.4); Monocytes # 1.7 K/mcL (0.0-1.3); Monocytes % 7.1 %; Neutrophils # 19.9 K/mcL (1.6-8.9); Platelet Count 312 K/mcL (140-400); Red Blood Count 4.49 M/mcL (3.82-4.97); Red Cell Distribution Width 12.2 % (11.5-14.5); Segmented Neutrophils % 82.8 %
[2017-08-09 18:07] LABS: Alanine Aminotransferase 58 Units/L (0-55); Albumin 3.7 g/dL (3.5-5.0); Alkaline Phosphatase 128 Units/L (38-126); Aspartate Amino Transferase 38 Units/L (5-34); BUN/Creatinine Ratio 9 (6-26); Bilirubin,Direct 0.2 mg/dL (0.0-0.5); Bilirubin,Indirect 0.1 mg/dL (0.0-1.2); Bilirubin,Total 0.3 mg/dL (0.2-1.2); Blood Urea Nitrogen 7 mg/dL (7-20); Calcium 8.9 mg/dL (8.6-10.8); Carbon Dioxide 25 mEq/L (19-29); Chloride 111 mEq/L (98-109); Globulin 3.8 g/dL (2.4-3.5); Glucose 103 mg/dL (70-99); Osmolality,Calculated 294 (280-300); Potassium 4.2 mEq/L (3.5-4.5); Sodium 143 mEq/L (136-145); Total Protein 7.5 g/dL (6.0-8.3); eGFR For African Americans > 60 (> 60); eGFR For Non-African Americans > 60 (> 60)
[2017-08-09] MEDS ORDERED: 0.9 % Sodium Chloride 1,000 ML IVC ONE ×2 (19:01→22:05)
[2017-08-09] MEDS ORDERED: Ondansetron 4 MG/2 ML VIAL IVP ONE ×2 (19:52→22:05)
[2017-08-09] MEDS ORDERED: *HR* HYDROmorphone (PF) 1 MG/ML SYRINGE IVP ONE ×2 (19:52→22:05)
[2017-08-09 19:54] LABS: Lipase < 10 Units/L (8-78)
--- NOTE | 2017-08-09 20:09 | Emergency Department Note ---
Disposition Clinical Impression: Abdominal pain Disposition: Still a Patient Referrals: Adri Aguilera CNP [Primary Care Provider] - Forms: ED Satisfaction Letter, Work/School Release Abdominal Pain HPI - General Chief Complaint: ED Abdominal Pain Stated Complaint: abd pain, biliary stent placed yesterday Time Seen by Provider: 08/09/17 17:34 Source: patient Nursing Notes Reviewed: Yes Vital Signs Reviewed: Yes - History of Present Illness HPI Narrative: Patient did have a sphincterectomy done yesterday in [place] and was discharged and now has significant upper abdominal pain with associated temperature 102.3 degrees at home. She said that her white blood cell count yesterday was 17,000. She denies any dysuria or urinary frequency, blood in the urine or stool, vaginal bleeding or discharge. The abdominal pain is worse with going over the bumps in the car on the way here. Social history: No smoking or alcohol or drugs. 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 [employer] Pain Scale: 9 - Related Data Previous Rx's Medication Instructions Recorded Amoxicillin/Clavulanate [Augmentin] 875 mg PO BIDWM #20 tablet 07/08/17 Guaifenesin/Pseudoephedrne HCl 1 each PO BID #20 tab.er.12h 07/08/17 [Mucinex D ER 1,200-120 mg Tab] Allergies Allergy/AdvReac Type Severity Reaction Status Date / Time cephalexin [From Keflex] Allergy Rash Verified 08/09/17 18:08 Review of Systems: Constitutional: + fever Vision: No blurred vision ENT: No rhinorrhea Respiratory: No cough Allergic: No allergies : No blood in urine GI: No blood in stool Hematologic: No bruising Dermatologic: No skin rash Musculoskeletal: No pain in the extremities Neuro: No numbness of the extremities Abdominal Pain PMH - Past Medical History Medical history: Reports: non-contributory Female Surgical History: Reports: Adenoidectomy, cholecystectomy, orthopedic, other, Tonsillectomy 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 EYES: PERRL, no scleral icterus. NOSE: The nose is normal in appearance without rhinorrhea RESP: Normal chest excursion with respiration; breath sounds clear and equal bilaterally; no wheezes, rhonchi, or rales CARD: Regular rhythm, without murmurs, rub or gallop ABD: Non-distended; moderate pain across the upper abdomen mostly in the epigastric and right upper quadrant areas, both these areas are soft without rigidity, rebound, guarding. Elsewhere the abdomen is. non-tender, soft, without rigidity, rebound or guarding. Normal appearance SKIN: Normal for age and race; warm and dry; no apparent lesions - General Limitations: no limitations General appearance: alert, in no apparent distress Course Vital Signs Temperature 97.9 F 08/09/17 18:04 Pulse Rate 95 08/09/17 18:04 Respiratory Rate 16 08/09/17 18:04 Blood Pressure 117/72 08/09/17 18:04 O2 Sat by Pulse Oximetry 98 08/09/17 18:04 Temperature 97.9 F 08/09/17 18:04 Pulse Rate 95 08/09/17 18:04 Respiratory Rate 16 08/09/17 18:04 Blood Pressure 117/72 08/09/17 18:04 O2 Sat by Pulse Oximetry 98 08/09/17 18:04 Oxygen Delivery Oxygen Delivery Room Air Abdominal Pain - MDM Narrative Medical decision making narrative: The patient does have pain following the procedure with a elevated white blood cell count and fever these concerning symptoms so the patient will have a contrast CT with IV contrast and these results are pending and the patient will be admitted to the hospital. 2007 CT scan is pending. Labs have been reviewed. White blood cell count is increased. Care is transitioned to Dr. Salazar and I did discuss the case with him and he will assume care at this time. 2107 - Medical Records Medical records reviewed: No I reviewed the patient's medical records. - Lab Data Lab results reviewed: Yes I reviewed the patient's lab results. Result diagrams: 08/09/17 17:46 08/09/17 17:46 Lab Results 08/09/17 08/09/17 08/09/17 Range/Units 17:46 17:46 19:58 WBC 24.0 H (4.3-11.1) K/mcL RBC 4.49 (3.82-4.97) M/mcL Hgb 13.1 (11.5-15.4) g/dL Hct 39.8 (35.3-44.9) % MCV 88.6 (83.0-100.0) fL MCH 29.2 (28.0-33.3) pg MCHC 32.9 (31.6-35.5) g/dL RDW 12.2 (11.5-14.5) % Plt Count 312 (140-400) K/mcL MPV 9.3 L (9.4-12.4) fL Immature Gran % 0.6 (0-4) % Seg Neutrophils % 82.8 % Lymphocytes % 9.2 % Monocytes % 7.1 % Eosinophils % 0.1 % Basophils % 0.2 % Neutrophils # 19.9 H (1.6-8.9) K/mcL Lymphocytes # 2.2 (0.6-4.6) K/mcL Monocytes # 1.7 H (0.0-1.3) K/mcL Eosinophils # 0.0 (0.0-0.6) K/mcL Basophils # 0.0 (0.0-0.2) K/mcL Sodium 143 (136-145) mEq/L Potassium 4.2 (3.5-4.5) mEq/L Chloride 111 H (98-109) mEq/L Carbon Dioxide 25 (19-29) mEq/L BUN 7 (7-20) mg/dL Creatinine 0.78 (0.57-1.11) mg/dL Est GFR ( Amer) > 60 (> 60) Est GFR (Non-Af Amer) > 60 (> 60) BUN/Creatinine Ratio 9 (6-26) Glucose 103 H (70-99) mg/dL Calculated Osmolality 294 (280-300) Calcium 8.9 (8.6-10.8) mg/dL Total Bilirubin 0.3 (0.2-1.2) mg/dL Direct Bilirubin 0.2 (0.0-0.5) mg/dL Indirect Bilirubin 0.1 (0.0-1.2) mg/dL AST 38 H (5-34) Units/L ALT 58 H (0-55) Units/L Alkaline Phosphatase 128 H (38-126) Units/L Serum Total Protein 7.5 (6.0-8.3) g/dL Albumin 3.7 (3.5-5.0) g/dL Globulin 3.8 H (2.4-3.5) g/dL Albumin/Globulin Ratio 1.0 L (1.1-2.2) Lipase < 10 (8-78) Units/L Urine Color Yellow (Yellow) Urine Clarity Clear (Clear) Urine pH 6.5 (5.0-8.0) pH Units Ur Specific [place] 1.024 (1.010-1.025) Urine Protein Negative (Neg-Trace) mg/dL Urine Glucose (UA) Normal (Normal) mg/dL Urine Ketones Negative (Negative) mg/dL Urine Blood Negative (Negative) Urine Nitrite Negative (Negative) Urine Bilirubin Negative (Negative) Urine Urobilinogen Normal (Normal) mg/dL Ur Leukocyte Esterase Negative (Negative) Ur Culture Indicated? NO (NO) Urine Test (Negative) 08/09/17 Range/Units 19:58 WBC (4.3-11.1) K/mcL RBC (3.82-4.97) M/mcL Hgb (11.5-15.4) g/dL Hct (35.3-44.9) % MCV (83.0-100.0) fL MCH (28.0-33.3) pg MCHC (31.6-35.5) g/dL RDW (11.5-14.5) % Plt Count (140-400) K/mcL MPV (9.4-12.4) fL Immature Gran % (0-4) % Seg Neutrophils % % Lymphocytes % % Monocytes % % Eosinophils % % Basophils % % Neutrophils # (1.6-8.9) K/mcL Lymphocytes # (0.6-4.6) K/mcL Monocytes # (0.0-1.3) K/mcL Eosinophils # (0.0-0.6) K/mcL Basophils # (0.0-0.2) K/mcL Sodium (136-145) mEq/L Potassium (3.5-4.5) mEq/L Chloride (98-109) mEq/L Carbon Dioxide (19-29) mEq/L BUN (7-20) mg/dL Creatinine (0.57-1.11) mg/dL Est GFR ( Amer) (> 60) Est GFR (Non-Af Amer) (> 60) BUN/Creatinine Ratio (6-26) Glucose (70-99) mg/dL Calculated Osmolality (280-300) Calcium (8.6-10.8) mg/dL Total Bilirubin (0.2-1.2) mg/dL Direct Bilirubin (0.0-0.5) mg/dL Indirect Bilirubin (0.0-1.2) mg/dL AST (5-34) Units/L ALT (0-55) Units/L Alkaline Phosphatase (38-126) Units/L Serum Total Protein (6.0-8.3) g/dL Albumin (3.5-5.0) g/dL Globulin (2.4-3.5) g/dL Albumin/Globulin Ratio (1.1-2.2) Lipase (8-78) Units/L Urine Color (Yellow) Urine Clarity (Clear) Urine pH (5.0-8.0) pH Units Ur Specific [place] (1.010-1.025) Urine Protein (Neg-Trace) mg/dL Urine Glucose (UA) (Normal) mg/dL Urine Ketones (Negative) mg/dL Urine Blood (Negative) Urine Nitrite (Negative) Urine Bilirubin (Negative) Urine Urobilinogen (Normal) mg/dL Ur Leukocyte Esterase (Negative) Ur Culture Indicated? (NO) Urine Test Negative (Negative)
[2017-08-09 20:15] LABS: Bilirubin,Urine Negative (Negative); Blood,Urine Negative (Negative); Clarity,Urine Clear (Clear); Color,Urine Yellow (Yellow); Glucose,Urine (UA) Normal (Normal); Ketones,Urine Negative (Negative); Leukocyte Esterase,Urine Negative (Negative); Nitrite,Urine Negative (Negative); PH,Urine 6.5 pH Units (5.0-8.0); Protein,Urine Negative (Neg-Trace); Specific Gravity,Urine 1.024 (1.010-1.025); Urobilinogen,Urine Normal (Normal)
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
[2017-08-09] MEDS ORDERED: MetroNIDAZOLE 500 MG/100 ML 500 MG/100 ML BAG IVPB ONE (23:16)
[2017-08-09] MEDS ORDERED: Acetaminophen 325 MG TABLET PO PRN (23:35)
[2017-08-09] MEDS ORDERED: Ondansetron 4 MG/2 ML VIAL IVP PRN (23:35)
[2017-08-09] MEDS ORDERED: *HR* OxyCODONE Immed Rel 5 MG TABLET PO PRN (23:35)
[2017-08-09] MEDS ORDERED: Naloxone 0.4 MG/ML INJ IVP PRN (23:35)
--- NOTE | 2017-08-09 23:49 | Internal Med History&Physical ---
<JackiepedrocecyGideon waters - Last Filed: 08/10/17 00:56> Date of Encounter: 08/10/17 Time of Encounter: 23:15 Assessment and Plan (1) Abdominal pain Current visit: Yes Status: Acute Abdominal pain secondary to s/p sphincterotomy. Patient afebrile. Elevated WBC count. GI was consulted by ED and stated that the patient should be placed on empiric antibiotics which include either Cipro and Flagyl or Zosyn. The two complications he would expect would be pancreatitis or a contained perforation both of which we do not see on blood work or CT. GI will be able to see the patient on Saturday. - IV fluids. - Pain control. - Trend Lipase. - Monitor liver enzymes. - Cipro and flagyl. - NPO diet. Qualifiers: Abdominal location: epigastric Qualified Code(s): R10.13 - Epigastric pain (2) Leukocytosis Current visit: No Status: Acute WBC elevated at 24. Afebrile. Likely reactionary to surgical procedure. - Monitor WBC count. - On empiric antibiotics. 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 Positive bowel sounds on exam. Patient able to pass gas . - NPO and IV hydration. - Limit morphine use to extreme pain only. - Ambulation TID. (5) DVT prophylaxis Current visit: Yes Status: Acute -ambulation TID. Internal Medicine - H&P: HPI Chief complaint: Abdominal pain Admitted From: Emergency Dept History of present illness: Ms. Ding is a 22 year old female with a PSHx of cholecystectomy (2014) and sphincterotomy (2017) that presents for abdominal pain. 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 Patient underwent recent EGD with Dr. Kim at [facility] and was unable to have stent placed. Patient then had the procedure performed in [place] where she had stent placement as well as sphincterotomy yesterday. Patient had been having pain in her right upper and mid-epigastric region since yesterday. She says it is constant, an 8/10 at it worst, and non-radiating. She reports a fever of 101 at home. She admits to nausea and vomiting. She denies any chest pain, SOB, diarrhea, blood in stool, dysuria, or hematuria. Past Med Surg Social Fam HX - Past Medical History Medical history: non-contributory Psychiatric history: anxiety - Past Surgical History Surgical History: cholecystectomy, other (Left knee surgery, tonsillectomy, adenoidectomy) - Social History Smoking Status: Never smoker Smokeless Tobacco Status: No Alcohol use: none Drug use: none - Family History Mother Adopted: No Family Member Ethnicity: Non- Living Status: Still Living Hx Family Cardiac Disorders: No Hx Family Respiratory Disorders: No Hx Family Cancer: Yes (CERVICAL) Hx Family GI Disorders: No Hx Family Endocrine Disorder: Yes (THYROID PROBLEMS) Hx Family Neuromuscular Disorders: No Hx Family Neurologic Disorders: No Hx Family HEENT Disorders: No Hx Family Autoimmune Disorders: No Father Living Status: Still Living Hx Family Cardiac Disorders: Yes (HTN) Hx Family Endocrine Disorder: Yes ("borderline DM") Internal Medicine - H&P: Meds Amoxicillin/Clavulanate [Augmentin] 875 mg PO BIDWM #20 tablet 07/08/17 [Rx] Guaifenesin/Pseudoephedrne HCl [Mucinex D ER 1,200-120 mg Tab] 1 each PO BID # 20 tab.er.12h 07/08/17 [Rx] 3 Allergy/AdvReac Type Severity Reaction Status Date / Time cephalexin [From Keflex] Allergy Rash Verified 08/09/17 18:08 All Systems PM: A 10-system review of systems was performed and is negative for pertinent findings except as documented above in the HPI. - Constitutional Vitals: Temp Pulse Resp BP Pulse Ox 97.9 F 82 20 122/83 98 08/09/17 18:04 08/09/17 23:07 08/09/17 23:07 08/09/17 23:07 08/09/17 23:07 General appearance: Present: A&O X 3, no acute distress, answers questions appropriately - Respiratory Respiratory exam: Present: CTAB. Absent: rales, respiratory distress, rhonchi, wheezes - Cardiovascular Cardiovascular exam: Present: RRR, +S1, +S2 - GI/Abdominal GI/Abdominal exam: Present: normal bowel sounds, soft, tenderness (Right upper quadrant and mid-epigastric). Absent: guarding, rebound - Extremities Exam Extremities exam: Present: full ROM, normal inspection, radial pulses palpable and symmetrical. Absent: calf tenderness, pedal edema, tenderness Additional comments: Pedal pulses intact and symmetrical bilaterally. Internal Med - H&P Results - Labs CBC & Chem 7: 08/10/17 00:23 08/10/17 00:23 <Pearl Rabagovahe Tran - Last Filed: 08/10/17 01:10> Date of Encounter: 08/10/17 Internal Medicine - H&P: HPI History of present illness: Ms. Ding is a 22 year old female All Systems PM: A 10-system review of systems was performed and is negative for pertinent findings except as documented above in the HPI. - Constitutional Vitals: Temp Pulse Resp BP Pulse Ox 97.5 F L 64 16 117/78 94 08/10/17 00:29 08/10/17 00:29 08/10/17 00:29 08/10/17 00:29 08/10/17 00:29 Internal Med - H&P Results - Labs CBC & Chem 7: 08/10/17 00:23 08/10/17 00:23 Labs: Short CBC 08/10/17 Range/Units 00:23 WBC 20.7 H (4.3-11.1) K/mcL Hgb 11.0 L D (11.5-15.4) g/dL Hct 33.2 L (35.3-44.9) % Plt Count 295 (140-400) K/mcL Neutrophils # 16.2 H (1.6-8.9) K/mcL BMP 08/10/17 00:23 Sodium 138 Potassium 3.6 Chloride 111 H Carbon Dioxide 21 BUN 7 Creatinine 0.66 Glucose 120 H Calcium 8.0 L Liver Function 08/10/17 Range/Units 00:23 Total Bilirubin 0.3 (0.2-1.2) mg/dL AST 28 (5-34) Units/L ALT 47 (0-55) Units/L Alkaline Phosphatase 102 (38-126) Units/L Albumin 3.0 L (3.5-5.0) g/dL - Attending Attestation I examined this patient and my medical decision-making was reviewed with the Resident Physician. I agree with the documented findings, disposition and treatment plan as described except to the extent set forth below. 22 yo who is known to [facility] with sphincter of oddi dysfn and was sent to for sphincterotomy and stent placement that was completed yesterday and subsequently discharge today. Since returning home, developed abdo pain, n/v all day x 2 billous emesis w/p improvement factors. Fever 102 General - AAO x 3 Psych - Appropriate affect/speech. No agitation Eyes - ELVIE. Eye lids intact. No scleral icterus Neuro - No gross peripheral or central neuro deficits with intact CN 2-12 exam Heart - Sinus. RRR. S1 and S2 present. No added HS/murmurs appreciated. No elevated JVD appreciated. Lung - Adequate air entry b/l, No crackles/wheezes appreciated GI - Epigastric tenderners, no guarding. No hepatosplenomegaly/ascites. BS+ - No CVA/suprapubic tenderness or palpable bladder distension Skin - Intact. No rash/petechiae/ecchymosis. Warm extremities MSK - Joints with normal ROM. No joint swellings ROS 14 point review of systems reviewed as best as possible given presentation. Pertinent positive or negative as per HPI or otherwise reviewed as negative CT/CT abd pelvis w iv no oral IMPRESSION: Mild ileus. A/P Post ERCP ileus - IV pain med - IV anti-emetics - bowel rest - GI to assist prn - not available but will return saturday. Rec IV antibiotics for now Monitor for post-ERCP pancreatitis - trend lipase, serial symptoms
[2017-08-10] MEDS: 0.9 % Sodium Chloride 1,000 ML IVC SCH ×2 (00:27→18:21)
[2017-08-10 00:31] LABS: Basophils % 0.1 %; Eosinophils # 0.1 K/mcL (0.0-0.6); Eosinophils % 0.5 %; Hematocrit 33.2 % (35.3-44.9); Immature Granulocytes % 0.4 % (0-4); Immature Platelets 3.3 % (1.1-6.1); Lymphocytes # 3.2 K/mcL (0.6-4.6); Lymphocytes % 15.4 %; Mean Corpuscular HGB Conc 33.1 g/dL (31.6-35.5); Mean Corpuscular Hemoglobin 29.6 pg (28.0-33.3); Mean Corpuscular Volume 89.5 fL (83.0-100.0); Mean Platelet Volume 9.5 fL (9.4-12.4); Neutrophils # 16.2 K/mcL (1.6-8.9); Platelet Count 295 K/mcL (140-400); Red Blood Count 3.71 M/mcL (3.82-4.97); Red Cell Distribution Width 12.4 % (11.5-14.5); Segmented Neutrophils % 78.6 %
[2017-08-10] MEDS: *HR* Morphine 2 MG/ML SYRINGE IVP PRN ×4 (00:33→22:19)
[2017-08-10 00:42] LABS: Alanine Aminotransferase 47 Units/L (0-55); Alkaline Phosphatase 102 Units/L (38-126); Aspartate Amino Transferase 28 Units/L (5-34); BUN/Creatinine Ratio 11 (6-26); Bilirubin,Total 0.3 mg/dL (0.2-1.2); Blood Urea Nitrogen 7 mg/dL (7-20); Carbon Dioxide 21 mEq/L (19-29); Chloride 111 mEq/L (98-109); Glucose 120 mg/dL (70-99); Osmolality,Calculated 285 (280-300); Potassium 3.6 mEq/L (3.5-4.5); Sodium 138 mEq/L (136-145); eGFR For African Americans > 60 (> 60); eGFR For Non-African Americans > 60 (> 60)
[2017-08-10] MEDS ORDERED: Naloxone 0.4 MG/ML INJ IVP PRN (01:20)
[2017-08-10] MEDS: MetroNIDAZOLE 500 MG/100 ML 500 MG/100 ML BAG IVPB SCH ×3 (05:06→18:20)
[2017-08-10 05:30] LABS: Basophils % 0.2 %; Eosinophils # 0.1 K/mcL (0.0-0.6); Eosinophils % 0.9 %; Hematocrit 34.9 % (35.3-44.9); Hemoglobin 11.1 g/dL (11.5-15.4); Immature Granulocytes % 0.5 % (0-4); Lymphocytes # 3.1 K/mcL (0.6-4.6); Lymphocytes % 20.6 %; Mean Corpuscular HGB Conc 31.8 g/dL (31.6-35.5); Mean Corpuscular Hemoglobin 28.9 pg (28.0-33.3); Mean Corpuscular Volume 90.9 fL (83.0-100.0); Mean Platelet Volume 9.1 fL (9.4-12.4); Monocytes % 6.4 %; Neutrophils # 10.7 K/mcL (1.6-8.9); Platelet Count 240 K/mcL (140-400); Red Blood Count 3.84 M/mcL (3.82-4.97); Red Cell Distribution Width 12.7 % (11.5-14.5); Segmented Neutrophils % 71.4 %
[2017-08-10 05:46] LABS: Alanine Aminotransferase 46 Units/L (0-55); Albumin 3.1 g/dL (3.5-5.0); Albumin/Globulin Ratio 1.1 (1.1-2.2); Alkaline Phosphatase 107 Units/L (38-126); Aspartate Amino Transferase 29 Units/L (5-34); BUN/Creatinine Ratio 10 (6-26); Bilirubin,Direct 0.2 mg/dL (0.0-0.5); Bilirubin,Indirect 0.2 mg/dL (0.0-1.2); Bilirubin,Total 0.4 mg/dL (0.2-1.2); Blood Urea Nitrogen 7 mg/dL (7-20); Calcium 8.2 mg/dL (8.6-10.8); Carbon Dioxide 25 mEq/L (19-29); Chloride 112 mEq/L (98-109); Globulin 2.9 g/dL (2.4-3.5); Glucose 91 mg/dL (70-99); Osmolality,Calculated 290 (280-300); Potassium 3.7 mEq/L (3.5-4.5); Sodium 141 mEq/L (136-145); eGFR For African Americans > 60 (> 60); eGFR For Non-African Americans > 60 (> 60)
[2017-08-10] MEDS: Ondansetron 4 MG/2 ML VIAL IVP PRN ×2 (06:21→11:41)
[2017-08-10 08:39] LABS: Lipase < 10 Units/L (8-78)
--- NOTE | 2017-08-10 10:29 | Event Note ---
Date of Encounter: 08/10/17 Time of Encounter: 10:28 22 year old female with h/o- Sphincter of Oddi dysfunction s/p ERCP and sphincterotomy 2 days ago, at [place], admitted with intractable abdominal pain; Patient seen and examined at bedside; reports feeling slightly better but still has abdominal pain and nausea; Chest- S1, S2 heard Abdomen- soft, nondistended, tenderness in epigastrium and RUQ Labs reviewed- improving leukocytosis, LFTs Abdominal pain- likely secondary to recent ERCP; no e/o- abscess on CT abdomen; case d/w GI by ER physician- recommend IV antibiotics and supportive care; continue IV hydration, antibiotics- Ciprofloxain and Flagyl; clar liquid diet as tolerated; pain control with PRN IV Morphine; PRN antiemetics;
[2017-08-10] MEDS: Ketorolac 30 MG/ML VIAL IVP PRN ×2 (11:41→20:22)
[2017-08-10] MEDS: *HR* Promethazine 25 MG/ML VIAL IVP PRN ×2 (14:21→22:19)
[2017-08-11] MEDS: MetroNIDAZOLE 500 MG/100 ML 500 MG/100 ML BAG IVPB SCH ×5 (00:28→23:42)
[2017-08-11] MEDS: Ketorolac 30 MG/ML VIAL IVP PRN ×2 (04:54→11:40)
[2017-08-11 05:22] LABS: Basophils # 0.1 K/mcL (0.0-0.2); Basophils % 0.6 %; Eosinophils # 0.2 K/mcL (0.0-0.6); Eosinophils % 2.3 %; Hematocrit 35.9 % (35.3-44.9); Hemoglobin 11.6 g/dL (11.5-15.4); Immature Granulocytes % 0.2 % (0-4); Lymphocytes # 3.4 K/mcL (0.6-4.6); Lymphocytes % 36.8 %; Mean Corpuscular HGB Conc 32.3 g/dL (31.6-35.5); Mean Corpuscular Hemoglobin 29.1 pg (28.0-33.3); Mean Platelet Volume 8.9 fL (9.4-12.4); Monocytes # 0.9 K/mcL (0.0-1.3); Monocytes % 9.4 %; Neutrophils # 4.7 K/mcL (1.6-8.9); Platelet Count 244 K/mcL (140-400); Red Blood Count 3.99 M/mcL (3.82-4.97); Red Cell Distribution Width 12.5 % (11.5-14.5); Segmented Neutrophils % 50.7 %
[2017-08-11 05:34] LABS: Alanine Aminotransferase 46 Units/L (0-55); Albumin/Globulin Ratio 0.9 (1.1-2.2); Alkaline Phosphatase 120 Units/L (38-126); Aspartate Amino Transferase 28 Units/L (5-34); BUN/Creatinine Ratio 9 (6-26); Bilirubin,Total 0.4 mg/dL (0.2-1.2); Blood Urea Nitrogen 7 mg/dL (7-20); Calcium 8.7 mg/dL (8.6-10.8); Carbon Dioxide 26 mEq/L (19-29); Chloride 108 mEq/L (98-109); Globulin 3.2 g/dL (2.4-3.5); Glucose 87 mg/dL (70-99); Osmolality,Calculated 289 (280-300); Potassium 3.7 mEq/L (3.5-4.5); Sodium 141 mEq/L (136-145); Total Protein 6.2 g/dL (6.0-8.3); eGFR For African Americans > 60 (> 60); eGFR For Non-African Americans > 60 (> 60)
[2017-08-11 05:39] LABS: Alanine Aminotransferase 46 Units/L (0-55); Albumin/Globulin Ratio 0.9 (1.1-2.2); Alkaline Phosphatase 118 Units/L (38-126); Aspartate Amino Transferase 27 Units/L (5-34); BUN/Creatinine Ratio 10 (6-26); Bilirubin,Direct 0.2 mg/dL (0.0-0.5); Bilirubin,Indirect 0.2 mg/dL (0.0-1.2); Bilirubin,Total 0.4 mg/dL (0.2-1.2); Blood Urea Nitrogen 7 mg/dL (7-20); Calcium 8.7 mg/dL (8.6-10.8); Carbon Dioxide 26 mEq/L (19-29); Chloride 109 mEq/L (98-109); Globulin 3.2 g/dL (2.4-3.5); Glucose 87 mg/dL (70-99); Osmolality,Calculated 289 (280-300); Potassium 3.7 mEq/L (3.5-4.5); Sodium 141 mEq/L (136-145); Total Protein 6.2 g/dL (6.0-8.3); eGFR For African Americans > 60 (> 60); eGFR For Non-African Americans > 60 (> 60)
[2017-08-11] MEDS: *HR* Promethazine 25 MG/ML VIAL IVP PRN ×2 (11:40→17:29)
--- NOTE | 2017-08-11 13:06 | Internal Med Progress Note ---
Date of Encounter: 08/11/17 Time of Encounter: 13:04 - Assessment and plan (1) Sphincter of Oddi dysfunction Current Visit: Yes Status: Chronic Assessment and plan: s/p sphincterotomy done at ; admitted with abdominal pain and nausea; improving; leukocytosis resolved and LFTs normal; continue empiric IV antibiotics- Ciprofloxacin and Flagyl; supportive care with PRN antiemetics and pain control with IV Morphine, start PRN Hydrocodone; diet as tolerated; GI consulted; (2) GERD (gastroesophageal reflux disease) Current Visit: Yes Status: Chronic Assessment and plan: continue PPI; Qualifiers: Esophagitis presence: without esophagitis Qualified Code(s): K21.9 - Gastro -esophageal reflux disease without esophagitis (3) Ileus Current Visit: Yes Status: Acute Assessment and plan: likely related to recent procedure; continue supportive care; (4) Abdominal pain Current Visit: Yes Status: Acute Assessment and plan: plan as above; Qualifiers: Abdominal location: right upper quadrant Qualified Code(s): R10.11 - Right upper quadrant pain - Subjective Interval history: Improving but still has nausea and right upper abdominal pain; tolerates clear liquids; no fever/chills; - Constitutional Vitals: Temp Pulse Resp BP Pulse Ox 97.5 F L 65 18 110/75 96 08/11/17 10:42 08/11/17 10:42 08/11/17 10:42 08/11/17 10:42 08/11/17 10:42 General appearance: Present: A&O X 3, no acute distress, answers questions appropriately - Respiratory Respiratory exam: Present: decreased breath sounds (at B/L bases), CTAB. Absent : accessory muscle use, rales, rhonchi, wheezes - Cardiovascular Cardiovascular exam: Present: RRR, +S1, +S2, tachycardia. Absent: diastolic murmur, gallop, rubs, systolic murmur - GI/Abdominal GI/Abdominal exam: Present: diminished bowel sounds, soft (tenderness in epigastrium and RUQ), no peritoneal signs. Absent: distended, tenderness - Extremities Exam Extremities exam: Present: full ROM, warm, radial pulses palpable and symmetrical. Absent: calf tenderness, cyanotic, pedal edema Internal Medicine: Result - Labs CBC & Chem 7: 08/11/17 05:06 08/11/17 05:06 Labs: Short CBC 08/11/17 Range/Units 05:06 WBC 9.3 (4.3-11.1) K/mcL Hgb 11.6 (11.5-15.4) g/dL Hct 35.9 (35.3-44.9) % Plt Count 244 (140-400) K/mcL Neutrophils # 4.7 (1.6-8.9) K/mcL BMP 08/11/17 08/11/17 05:06 05:06 Sodium 141 141 Potassium 3.7 3.7 Chloride 109 108 Carbon Dioxide 26 26 BUN 7 7 Creatinine 0.73 0.74 Glucose 87 87 Calcium 8.7 8.7 Liver Function 08/11/17 08/11/17 Range/Units 05:06 05:06 Total Bilirubin 0.4 0.4 (0.2-1.2) mg/dL Direct Bilirubin 0.2 (0.0-0.5) mg/dL AST 27 28 (5-34) Units/L ALT 46 46 (0-55) Units/L Alkaline Phosphatase 118 120 (38-126) Units/L Albumin 3.0 L 3.0 L (3.5-5.0) g/dL Consult Discharge Plan - Plan Referrals: Adri Aguilera, REVERSER [Primary Care Provider] -
[2017-08-11] MEDS: *HR* HYDROcodone/Acet 5/325 mg TABLET PO PRN (17:29)
[2017-08-11] MEDS: Sennosides/Docusate Sodium TABLET PO SCH (21:16)
[2017-08-12] MEDS: Ondansetron 4 MG/2 ML VIAL IVP PRN ×3 (02:00→15:08)
[2017-08-12 04:14] LABS: Basophils # 0.1 K/mcL (0.0-0.2); Basophils % 0.7 %; Eosinophils # 0.3 K/mcL (0.0-0.6); Eosinophils % 3.5 %; Hemoglobin 12.6 g/dL (11.5-15.4); Immature Granulocytes % 0.3 % (0-4); Lymphocytes # 2.5 K/mcL (0.6-4.6); Lymphocytes % 25.5 %; Mean Corpuscular HGB Conc 33.2 g/dL (31.6-35.5); Mean Corpuscular Hemoglobin 29.4 pg (28.0-33.3); Mean Corpuscular Volume 88.6 fL (83.0-100.0); Mean Platelet Volume 9.1 fL (9.4-12.4); Monocytes % 10.1 %; Neutrophils # 5.9 K/mcL (1.6-8.9); Platelet Count 278 K/mcL (140-400); Red Blood Count 4.29 M/mcL (3.82-4.97); Red Cell Distribution Width 12.3 % (11.5-14.5); Segmented Neutrophils % 59.9 %
[2017-08-12 04:22] LABS: Alanine Aminotransferase 43 Units/L (0-55); Albumin 3.3 g/dL (3.5-5.0); Albumin/Globulin Ratio 1.1 (1.1-2.2); Alkaline Phosphatase 121 Units/L (38-126); Aspartate Amino Transferase 29 Units/L (5-34); BUN/Creatinine Ratio 14 (6-26); Bilirubin,Direct 0.2 mg/dL (0.0-0.5); Bilirubin,Indirect 0.2 mg/dL (0.0-1.2); Bilirubin,Total 0.4 mg/dL (0.2-1.2); Blood Urea Nitrogen 11 mg/dL (7-20); Calcium 9.1 mg/dL (8.6-10.8); Carbon Dioxide 24 mEq/L (19-29); Chloride 106 mEq/L (98-109); Globulin 3.1 g/dL (2.4-3.5); Glucose 85 mg/dL (70-99); Osmolality,Calculated 285 (280-300); Potassium 3.6 mEq/L (3.5-4.5); Sodium 138 mEq/L (136-145); Total Protein 6.4 g/dL (6.0-8.3); eGFR For African Americans > 60 (> 60); eGFR For Non-African Americans > 60 (> 60)
[2017-08-12] MEDS: MetroNIDAZOLE 500 MG/100 ML 500 MG/100 ML BAG IVPB SCH ×3 (06:37→17:19)
[2017-08-12] MEDS: Sennosides/Docusate Sodium TABLET PO SCH (08:41)
[2017-08-12] MEDS: *HR* HYDROcodone/Acet 5/325 mg TABLET PO PRN ×2 (08:47→15:07)
--- NOTE | 2017-08-12 12:12 | Electrocardiograph Report ---
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
--- NOTE | 2017-08-12 12:27 | Internal Med Progress Note ---
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 Assessment and plan: s/p sphincterotomy done at ; admitted with abdominal pain and nausea; improving; leukocytosis resolved and LFTs normal; continue empiric IV antibiotics- Ciprofloxacin and Flagyl; supportive care with PRN antiemetics and pain control with PO PRN Hydrocodone; restart IV hydration due to dizziness; advance diet as tolerated; GI consult appreciated, agree with current management ; Anticipate discharge in am; (2) GERD (gastroesophageal reflux disease) Current Visit: Yes Status: Chronic Assessment and plan: continue PPI; Qualifiers: Esophagitis presence: without esophagitis Qualified Code(s): K21.9 - Gastro -esophageal reflux disease without esophagitis (3) Ileus Current Visit: Yes Status: Acute Assessment and plan: likely related to recent procedure; continue supportive care; PRN senna/Colace; (4) Abdominal pain Current Visit: Yes Status: Acute Assessment and plan: plan as above; Qualifiers: Abdominal location: right upper quadrant Qualified Code(s): R10.11 - Right upper quadrant pain - Subjective Interval history: Continues to report nausea; no vomiting, diarrhea; improving abdominal pain; has had no bowel movement since ERCP 4 days ago; no fever/chills; reports feeling dizzy on standing up and walking; - Constitutional Vitals: Temp Pulse Resp BP Pulse Ox 98.0 F 64 16 94/62 96 08/12/17 07:19 08/12/17 07:19 08/12/17 07:19 08/12/17 07:19 08/12/17 07:19 General appearance: Present: A&O X 3, no acute distress, answers questions appropriately - Respiratory Respiratory exam: Present: CTAB. Absent: accessory muscle use, rales, rhonchi, wheezes - Cardiovascular Cardiovascular exam: Present: RRR, +S1, +S2. Absent: diastolic murmur, gallop, rubs, systolic murmur - GI/Abdominal GI/Abdominal exam: Present: normal bowel sounds, soft (minimal tenderness in epigastrium and RUQ), no peritoneal signs. Absent: distended, tenderness - Extremities Exam Extremities exam: Present: warm, radial pulses palpable and symmetrical. Absent : calf tenderness, cyanotic, pedal edema Internal Medicine: Result - Labs CBC & Chem 7: 08/12/17 03:51 08/12/17 03:51 Labs: Short CBC 08/12/17 Range/Units 03:51 WBC 9.9 (4.3-11.1) K/mcL Hgb 12.6 (11.5-15.4) g/dL Hct 38.0 (35.3-44.9) % Plt Count 278 (140-400) K/mcL Neutrophils # 5.9 (1.6-8.9) K/mcL BMP 08/12/17 03:51 Sodium 138 Potassium 3.6 Chloride 106 Carbon Dioxide 24 BUN 11 Creatinine 0.79 Glucose 85 Calcium 9.1 Liver Function 08/12/17 Range/Units 03:51 Total Bilirubin 0.4 (0.2-1.2) mg/dL Direct Bilirubin 0.2 (0.0-0.5) mg/dL AST 29 (5-34) Units/L ALT 43 (0-55) Units/L Alkaline Phosphatase 121 (38-126) Units/L Albumin 3.3 L (3.5-5.0) g/dL Consult Discharge Plan - Plan Referrals: Adri Aguilera, [employer]TER [Primary Care Provider] -
--- NOTE | 2017-08-12 13:14 | Gastroenterology Consult Note ---
Date of Encounter: 08/12/17 Time of Encounter: 11:15 - Assessment and plan (1) Abdominal pain Current Visit: Yes Status: Acute Assessment and plan: Recent pancreatic stent placement at [facility]. Labs are now wnl, continue fluids advance diet as tolerated. Qualifiers: Abdominal location: right upper quadrant Qualified Code(s): R10.11 - Right upper quadrant pain (2) Ileus Current Visit: Yes Status: Acute Assessment and plan: Bowel sounds are present. Pt advised to ambulate as tolerated has some dizziness with standing needs IVF. Advised po intake as tolerated. - Time Spent With Patient Total time spent is greater than 50% in coordination of care (as documented) at patient's floor/unit and/or counseling patient: GI History of Present Illness - Data of Consult Patient: known to practice within the last 3 years Consult date: 08/12/17 Requesting Physician: Baylee Coppola MD - Consult Narrative Reason for consult: abdominal pain History of present illness: Ms. Ding is a 22 year old female with a PSHx of cholecystectomy (2013) and sphincterotomy (2016) that presents for abdominal pain. 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 Dr Kim attempted ERCP 06/11 but was aborted due to difficult cannulization. She had post procedure pancreatitis. She was referred to [facility] and had ERCP with pancreatic stent 08/07/17. She states she stayed one night in the hospital before being discharged home. She had increasing abdominal pain, nausea and vomiting. She had fever of 102 at home. She was taking percocet with no relief. Last BM 4 days ago. On admission ALT, AST, and alk phos were elevated but have now normalized. Ct abdomen showed mild ileus and pancreatic stent in place. She denies any chest pain, SOB, diarrhea, blood in stool, dysuria, or hematuria. NSAIDS: toradol prn Anticoagulants: none EGD: 03/11 normal 06/11 ERCP aborted due to dificulty with cannulation ERCP ([facility]) with stent placement COLON: denies Past Med Surg Social Fam HX - Past Medical History Medical history: non-contributory Psychiatric history: anxiety - Past Surgical History Surgical History: cholecystectomy, other (Left knee surgery, tonsillectomy, adenoidectomy) - Social History Smoking Status: Never smoker Smokeless Tobacco Status: No Alcohol use: none Drug use: none - Family History Mother Adopted: No Family Member Ethnicity: Non- Living Status: Still Living Hx Family Cardiac Disorders: No Hx Family Respiratory Disorders: No Hx Family Cancer: Yes (CERVICAL) Hx Family GI Disorders: No Hx Family Endocrine Disorder: Yes (THYROID PROBLEMS) Hx Family Neuromuscular Disorders: No Hx Family Neurologic Disorders: No Hx Family HEENT Disorders: No Hx Family Autoimmune Disorders: No Father Living Status: Still Living Hx Family Cardiac Disorders: Yes (HTN) Hx Family Endocrine Disorder: Yes ("borderline DM") Review of Systems: GI: as per [place] GENERAL: fever 102 and chills at home EYES: denies yellow discoloration ENT: denies pain with swallowing or difficulty swallowing CARDIO: denies chest pain, palpitations RESP: No Shortness of breath with exertion : denies change in color of urine NEURO: weakness and dizziness with standing HEME: Denies any bruising MS: denies joint pain, joint swelling or back pain. DERM: denies rash or itching PSYCH: Denies history of anxiety or depression - Constitutional Vitals: Temp Pulse Resp BP Pulse Ox 98.0 F 64 16 94/62 96 08/12/17 07:19 08/12/17 07:19 08/12/17 07:19 08/12/17 07:19 08/12/17 07:19 Exam: CONSTITUTIONAL:~alert, no acute distress.~HEAD:~normocephalic.~EYES:~no jaundice.~NECK:~no obvious swelling.~HEART:~regular rate and rhythm, no murmurs. ~LUNGS:~bilateral good air entry.~ABDOMEN:~softly distended, soft, tender bilateral upper quadrants, no masses palpable, no organomegaly.~RECTAL EXAM:~ Deferred.~EXTREMITIES:~no clubbing, cyanosis or edema.~SKIN:~no stigmata of chronic liver disease.~NEUROLOGIC:~no obvious focal defect.~~~~ Results - Labs CBC & Chem 7: 08/12/17 03:51 08/12/17 03:51 Labs: Last Result Calcium 9.1 mg/dL (8.6-10.8) 08/12/17 03:51 Entire Visit Hgb 12.6 g/dL (11.5-15.4) 08/12/17 03:51 Hct 38.0 % (35.3-44.9) 08/12/17 03:51 Total Bilirubin 0.4 mg/dL (0.2-1.2) 08/12/17 03:51 AST 29 Units/L (5-34) 08/12/17 03:51 ALT 43 Units/L (0-55) 08/12/17 03:51 Lipase < 10 Units/L (8-78) 08/10/17 05:21 Consult Discharge Plan - Plan Referrals: Adri Aguilera, FLEET SALES MANAGER [Primary Care Provider] -
[2017-08-12] MEDS: 0.9 % Sodium Chloride 1,000 ML IVC SCH (15:07)
[2017-08-13] MEDS: MetroNIDAZOLE 500 MG/100 ML 500 MG/100 ML BAG IVPB SCH ×3 (00:41→11:47)
[2017-08-13] MEDS: 0.9 % Sodium Chloride 1,000 ML IVC SCH (03:08)
[2017-08-13 10:51] VITALS: BP 109/71
--- NOTE | 2017-08-13 11:33 | Discharge Summary ---
Date of Encounter: 08/13/17 Time of Encounter: 11:30 - Discharge Diagnosis (1) Sphincter of Oddi dysfunction Priority: Secondary Status: Chronic (2) Leukocytosis Priority: Primary Status: Acute Qualifiers: Leukocytosis type: unspecified Qualified Code(s): D72.829 - Elevated white blood cell count, unspecified (3) Ileus Priority: Primary Status: Acute (4) Abdominal pain Priority: Primary Status: Acute Qualifiers: Abdominal location: right upper quadrant Qualified Code(s): R10.11 - Right upper quadrant pain - Discharge Medications Prescriptions: Ciprofloxacin HCl [Cipro] 500 mg PO BID #6 tablet metroNIDAZOLE [Flagyl] 500 mg PO TID #9 tablet Home Medications: Oxycodone HCl/Acetaminophen [Percocet 5-325 mg Tablet] 1 tab PO Q6H PRN [History] Ciprofloxacin HCl [Cipro] 500 mg PO BID #6 tablet 08/13/17 [Rx] metroNIDAZOLE [Flagyl] 500 mg PO TID #9 tablet 08/13/17 [Rx] Allergies/Adverse Reactions: 3 Allergy/AdvReac Type Severity Reaction Status Date / Time cephalexin [From Keflex] Allergy Rash Verified 08/09/17 18:08 Date of admission: 08/10/17 01:18 Primary care physician: Adri Aguilera CNP Consults: 08/12/17 14:21 Consult to Invasive Line Access Team [CONS] Routine Reason for Consult: poor access Line Type: EPIV - Patient Status Disposition: Home, Self-Care Condition: Good Overall status at discharge: patient is back to baseline - Discharge Instructions Instructions: Acute Abdominal Pain (DC), Ileus (DC) Follow Up With: Adri Aguilera CNP [Primary Care Provider] - 08/20/17 10:00 am - Diet and Activity Activity: resume usual activities as tolerated Diet: regular diet Hospital course: Ms. Ding is a 22 year old female female with a PSHx of cholecystectomy (2013) and sphincterotomy (2016) that presents for abdominal pain. 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 Patient underwent recent EGD with Dr. Kim at [facility] and was unable to have stent placed. Patient then had the procedure performed in [place] where she had stent placement as well as sphincterotomy the day prior to this admission. She had abdominal pain post procedure and presented to our facility again where she was admitted for intractable pain. She had elevated white count. She was put on IV fluids as well as IV Cipro and Flagyl. Her lipase was checked and was normal. CT abdomen and pelvis showed mild ileus. She continued to be treated conservatively with IV fluids and pain control. She tolerated diet by day of discharge on 1219. Since she was started on Cipro and Flagyl and her white count had resolved with that I decided to continue Cipro and Flagyl to finish a 7 day course. Should she received 4 days of overt wall hospitalist. She was seen by GI while she was here as well and recommendations were for conservative management. - Time Spent with Patient Total time spent providing and/or coordinating discharge services: - Constitutional Vitals: Temp Pulse Resp BP Pulse Ox 98.7 F 98 17 109/71 97 08/13/17 10:47 08/13/17 10:47 08/13/17 10:47 08/13/17 10:47 08/13/17 10:47 General appearance: Present: A&O X 3, no acute distress, answers questions appropriately Exam: GEN: NAD CVS: RRR. S1, S2, No m/r/g RESP: CTAB ABD: Soft, NT, ND, +BS EXT: No edema. 2+ DP, No rashes NEURO: Nonfocal
== END 2017-08-13 13:29 | disposition home or self-care (01) | DRG 394 ==
LOC: 3ANU 16:54 → EMEROO 16:54 → 3ANU 23:56
PROVIDERS: ADMIT Internal Medicine Hematology & Oncology; ATTEND Internal Medicine

== ENCOUNTER → 2018-12-10 19:05 | Observation (INO) ==
--- NOTE | 2018-12-10 18:31 | OB/GYN Progress Note ---
Date of Encounter: 12/10/18 Time of Encounter: 18:29 - Assessment and Plan (1) 23 weeks gestation of Current Visit: Yes Status: Acute (2) Decreased movement Current Visit: Yes Status: Acute FHT reassuring for GA. Pt can now feel lots of movement. Discharge home with precautions. Qualifiers: Fetus number: single or unspecified fetus Trimester: second trimester Qualified Code(s): O36.8120 - Decreased movements, second trimester, not applicable or unspecified Subjective - Subjective Interval history: 23 year-old G1 presenting at 23w5d with c/o not feeling movement since last night. She denies any other complaints. No contractions, leaking or bleeding. Good movement now. Antepartum ROS: no loss of fluid, no vaginal bleeding, no contractions Objective - Exam FHR: auscultation normal FHR comments: 145 BPM with moderate variability, reassuring for GA Auscultation: bilateral: normal Abdomen: Present: soft, gravid Uterus: Absent: tenderness
[2018-12-10 19:01] LABS: Amphetamine Screen,Urine Negative ng/mL (Cutoff=1000); Barbiturate Screen,Urine Negative ng/mL (Cutoff=200); Benzodiazepines Screen,Urine Negative ng/mL (Cutoff=200); Cannabinoid Screen,Urine Negative ng/mL (Cutoff = 50); Cocaine Screen,Urine Negative ng/mL (Cutoff= 300); Opiate Screen,Urine Negative ng/mL (Cutoff=300); Phencyclidine Screen,Urine Negative ng/mL (Cutoff=25)
== END | disposition home or self-care (01) ==
LOC: 1NENULAB
PROVIDERS: ADMIT Registered Nurse; ATTEND Registered Nurse

== ENCOUNTER → 2019-02-13 03:35 | Observation (INO) ==
[2019-02-12 21:51] LABS: Amphetamine Screen,Urine Negative ng/mL (Cutoff=1000); Barbiturate Screen,Urine Negative ng/mL (Cutoff=200); Benzodiazepines Screen,Urine Negative ng/mL (Cutoff=200); Cannabinoid Screen,Urine Negative ng/mL (Cutoff = 50); Cocaine Screen,Urine Negative ng/mL (Cutoff= 300); Opiate Screen,Urine Negative ng/mL (Cutoff=300); Phencyclidine Screen,Urine Negative ng/mL (Cutoff=25)
[2019-02-13 00:35] LABS: Bilirubin,Urine Negative (Negative); Blood,Urine Negative (Negative); Clarity,Urine Clear (Clear); Color,Urine Yellow (Yellow); Glucose,Urine (UA) Normal (Normal); Ketones,Urine Negative (Negative); Leukocyte Esterase,Urine Negative (Negative); Nitrite,Urine Negative (Negative); Protein,Urine Negative (Neg-Trace); Urobilinogen,Urine Normal (Normal)
[2019-02-13 01:33] LABS: Basophils # 0.1 K/mcL (0.0-0.2); Basophils % 0.4 %; Eosinophils # 0.2 K/mcL (0.0-0.6); Eosinophils % 1.2 %; Hematocrit 34.2 % (35.3-44.9); Hemoglobin 11.6 g/dL (11.5-15.4); Immature Granulocytes % 0.7 % (0-4); Immature Platelets 4.4 % (1.1-6.1); Lymphocytes # 3.1 K/mcL (0.6-4.6); Lymphocytes % 22.2 %; Mean Corpuscular HGB Conc 33.9 g/dL (31.6-35.5); Mean Corpuscular Hemoglobin 29.7 pg (28.0-33.3); Monocytes # 1.3 K/mcL (0.0-1.3); Monocytes % 8.9 %; Neutrophils # 9.4 K/mcL (1.6-8.9); Platelet Count 336 K/mcL (140-400); Red Cell Distribution Width 12.7 % (11.5-14.5); Segmented Neutrophils % 66.6 %; White Blood Count 14.1 K/mcL (4.3-11.1)
[2019-02-13 01:35] LABS: Mean Corpuscular Volume 87.7 fL (83.0-100.0)
[2019-02-13 01:48] LABS: INR 0.8; Prothrombin Time 9.5 Seconds (9.4-12.1)
[2019-02-13 01:50] LABS: Activated Partial Thrombo Time 27.8 Seconds (26.0-36.0)
--- NOTE | 2019-02-13 03:24 | Discharge Summary ---
Date of Encounter: 02/14/19 Time of Encounter: 03:22 - Discharge Diagnosis (1) 33 weeks gestation of Priority: Primary Status: Acute Comments: Admit to observation for monitoring post fall with abdominal trauma (2) Status post fall Priority: Secondary Status: Acute Comments: Continuous monitoring x 4 hours (3) NST (non-stress test) reactive Priority: Secondary Status: Acute Comments: FHR 140 bpm, moderate variability, +15x15 accels, no decels. - Discharge Medications Prescriptions: No Action Caplet 1 tab PO DAILY Home Medications: Caplet 1 tab PO DAILY 10/06/18 [History] Allergies/Adverse Reactions: Allergy/AdvReac Type Severity Reaction Status Date / Time cephalexin [From Keflex] Allergy Rash Verified 02/12/19 21:39 Data Procedures and tests throughout hospitalization: Laboratory Tests 02/12/19 02/13/19 02/13/19 21:25 00:10 01:18 WBC 14.1 H RBC 3.90 Hgb 11.6 Hct 34.2 L MCV 87.7 D MCH 29.7 MCHC 33.9 RDW 12.7 Plt Count 336 MPV 10.0 Immature Gran % 0.7 Seg Neutrophils % 66.6 Lymphocytes % 22.2 Monocytes % 8.9 Eosinophils % 1.2 Basophils % 0.4 Neutrophils # 9.4 H Lymphocytes # 3.1 Monocytes # 1.3 Eosinophils # 0.2 Basophils # 0.1 Immature Plt Fraction 4.4 PT INR APTT Fibrinogen Urine Color Yellow Urine Clarity Clear Urine pH 6.0 Ur Specific Burns 1.010 Urine Protein Negative Urine Glucose (UA) Normal Urine Ketones Negative Urine Blood Negative Urine Nitrite Negative Urine Bilirubin Negative Urine Urobilinogen Normal Ur Leukocyte Esterase Negative Urine Opiates Screen Negative Ur Barbiturates Screen Negative Ur Phencyclidine Scrn Negative Ur Amphetamines Screen Negative U Benzodiazepines Scrn Negative Urine Cocaine Screen Negative U Marijuana (THC) Screen Negative Ur Drug Screen Interp See Below 02/13/19 01:18 WBC RBC Hgb Hct MCV MCH MCHC RDW Plt Count MPV Immature Gran % Seg Neutrophils % Lymphocytes % Monocytes % Eosinophils % Basophils % Neutrophils # Lymphocytes # Monocytes # Eosinophils # Basophils # Immature Plt Fraction PT 9.5 INR 0.8 APTT 27.8 Fibrinogen 529 H Urine Color Urine Clarity Urine pH Ur Specific Burns Urine Protein Urine Glucose (UA) Urine Ketones Urine Blood Urine Nitrite Urine Bilirubin Urine Urobilinogen Ur Leukocyte Esterase Urine Opiates Screen Ur Barbiturates Screen Ur Phencyclidine Scrn Ur Amphetamines Screen U Benzodiazepines Scrn Urine Cocaine Screen U Marijuana (THC) Screen Ur Drug Screen Interp Labs on day of discharge: Labs from last 24 hours 02/13/19 02/13/19 02/13/19 01:18 01:18 00:10 WBC 14.1 H RBC 3.90 Hgb 11.6 Hct 34.2 L MCV 87.7 D MCH 29.7 MCHC 33.9 RDW 12.7 Plt Count 336 MPV 10.0 Immature Gran % 0.7 Seg Neutrophils % 66.6 Lymphocytes % 22.2 Monocytes % 8.9 Eosinophils % 1.2 Basophils % 0.4 Neutrophils # 9.4 H Lymphocytes # 3.1 Monocytes # 1.3 Eosinophils # 0.2 Basophils # 0.1 Immature Plt Fraction 4.4 PT 9.5 INR 0.8 APTT 27.8 Fibrinogen 529 H Urine Color Yellow Urine Clarity Clear Urine pH 6.0 Ur Specific Burns 1.010 Urine Protein Negative Urine Glucose (UA) Normal Urine Ketones Negative Urine Blood Negative Urine Nitrite Negative Urine Bilirubin Negative Urine Urobilinogen Normal Ur Leukocyte Esterase Negative Urine Opiates Screen Ur Barbiturates Screen Ur Phencyclidine Scrn Ur Amphetamines Screen U Benzodiazepines Scrn Urine Cocaine Screen U Marijuana (THC) Screen Ur Drug Screen Interp 02/12/19 21:25 WBC RBC Hgb Hct MCV MCH MCHC RDW Plt Count MPV Immature Gran % Seg Neutrophils % Lymphocytes % Monocytes % Eosinophils % Basophils % Neutrophils # Lymphocytes # Monocytes # Eosinophils # Basophils # Immature Plt Fraction PT INR APTT Fibrinogen Urine Color Urine Clarity Urine pH Ur Specific Burns Urine Protein Urine Glucose (UA) Urine Ketones Urine Blood Urine Nitrite Urine Bilirubin Urine Urobilinogen Ur Leukocyte Esterase Urine Opiates Screen Negative Ur Barbiturates Screen Negative Ur Phencyclidine Scrn Negative Ur Amphetamines Screen Negative U Benzodiazepines Scrn Negative Urine Cocaine Screen Negative U Marijuana (THC) Screen Negative Ur Drug Screen Interp See Below Date of admission: 02/12/19 21:18 Discharging clinician: Noemi Mcclelland Anticipated date of discharge: 02/13/19 - Patient Status Disposition: Home, Self-Care Condition: Good Functional capacity at discharge: independent ambulation Overall status at discharge: patient is progressing back to baseline - Discharge Instructions Follow Up With: Eyota,Arlet S, MD [Partnered Physician] - Additional Instructions: LABOR AND DELIVERY DISCHARGE INSTRUCTIONS Signs and Symptoms to be Reported to your Doctor Immediately: * Sudden gush, continuous or intermittent lead of fluid from vagina (note the time of gush and color of fluid) * Onset of bright red vaginal bleeding with or without pain (if you had a vaginal exam during this visit you may notice some dark red spotting. This is normal.) * Lower abdominal cramping or backache that is premenstrual-like feeling. * More than 6 contractions in one hour. * Burning during urination, having to urinate more frequently or pain in your mid-back. * A change in the baby's activity. This could be an increase or decrease in activity. * Severe headache which does not go away with tylenol. * Sudden swelling in the face, hands, arms and/or legs. * Upper abdominal pain - sometimes associated with heartburn or nausea and is not relieved by Maalox, Mylanta or Tums. * Dizziness or blurred vision or visual disturbances (seeing stars/lights). * Kick Counts One hour after a meal, lay down on one side in a quiet place. Count the number of popeye the baby moves during an hour. If less than 6 movements, notify your physician. Diet: *Force fluids - 8-10 tall glasses of fluid per day. May include popsicles and jello. *Limit caffeine - this includes chocolate, coffee, tea, any soft drink containing such as all kuldip, Ye Yellow and Mountain Dew - Diet and Activity Activity: resume usual activities as tolerated Diet: regular diet Hospital Course [employer] Hospital course: Patient arrived status post fall after trying to get into her bathtub. States she fell and hit her abdomen directly. Patient's blood type is +Rh. While she was being monitored, some contractions were noted so lab work was completed with normal coag studies. IV hydration was provided with subsequent spacing of contractions and reactive NST was noted so patient was discharged home. She has a routine visit in 3 days and is advised to keep that appointment and continue kick counts. She is advised to return for any s/s of labor or bleeding. Time Attestation: Total time spent providing and/or coordinating discharge services: Time Spent: Less than 30 minutes Exam - Constitutional General appearance IM: A&O X 3, no acute distress - Respiratory Respiratory exam: Present: CTAB. Absent: respiratory distress - Cardiovascular Cardiovascular exam IM: Present: RRR, +S1, +S2. Absent: irregular rhythm - GI/Abdominal GI/Abdominal exam IM: normal bowel sounds, soft Incision: normal, dry, intact - Rectal Rectal exam: deferred - External exam: normal external exam - Extremities Exam Extremities exam IM: Present: full ROM, normal capillary refill, normal inspection. Absent: calf tenderness - Neurological Exam Neurological exam: alert, normal gait, oriented X3 - VTE Reasons for not Prescribing Prophylaxis: Treatment not Indicated - Low risk for VTE
[~2019-02-13 03:35] MED LIST: Ringers Solution, Lactated 1,000 ML IVC SCH; Ringers Solution, Lactated 1,000 ML ONE
== END | disposition home or self-care (01) ==
LOC: 1NENULAB
PROVIDERS: ADMIT Registered Nurse; ATTEND Registered Nurse

== ENCOUNTER 2019-02-24 00:58 | Inpatient (IN) ==
[2019-02-24 01:43] LABS: Bilirubin,Urine Negative (Negative); Blood,Urine Trace (Negative); Clarity,Urine Clear (Clear); Color,Urine Yellow (Yellow); Glucose,Urine (UA) Normal (Normal); Ketones,Urine Negative (Negative); Leukocyte Esterase,Urine Negative (Negative); Nitrite,Urine Negative (Negative); Protein,Urine Negative (Neg-Trace); Specific Gravity,Urine 1.017 (1.010-1.025); Urobilinogen,Urine Normal (Normal)
[2019-02-24 01:46] LABS: Bacteria,Urine None Seen per hpf (None-Few); Hyaline Casts,Urine None Seen per lpf (None-Few); RBC,Urine 0-3 per hpf (0-3); Squamous Epithelial Cell,Urine Many per lpf (None-Few)
[2019-02-24 01:53] LABS: Amphetamine Screen,Urine Negative ng/mL (Cutoff=1000); Barbiturate Screen,Urine Negative ng/mL (Cutoff=200); Benzodiazepines Screen,Urine Negative ng/mL (Cutoff=200); Cannabinoid Screen,Urine Negative ng/mL (Cutoff = 50); Cocaine Screen,Urine Negative ng/mL (Cutoff= 300); Opiate Screen,Urine Negative ng/mL (Cutoff=300); Phencyclidine Screen,Urine Negative ng/mL (Cutoff=25)
[2019-02-24] MEDS ORDERED: Metoclopramide 10 MG/2 ML VIAL IVP PRN (01:57)
[2019-02-24] MEDS ORDERED: *HR* Nalbuphine 10 MG/ML AMPUL IVP PRN (01:57)
[2019-02-24] MEDS ORDERED: Famotidine 20 MG/2 ML VIAL IVP PRN (01:57)
[2019-02-24] MEDS ORDERED: Penicillin G Potassium 5,000,000 UNIT in 0.9 % Sodium Chloride Mini Bag 100 ML IVPB ONE (01:57)
[2019-02-24] MEDS ORDERED: Ondansetron 4 MG/2 ML VIAL IVP PRN (01:57)
[2019-02-24] MEDS ORDERED: Naloxone 0.4 MG/ML INJ IVP PRN (01:57)
--- NOTE | 2019-02-24 01:57 | OB/GYN History & Physical ---
Date of Encounter: 02/24/19 Time of Encounter: 02:05 Assessment and Plan (1) 34 weeks gestation of Current visit: Yes Status: Acute Admit to labor and delivery for PPROM at 34 weeks 4 days (2) premature rupture of membranes in third trimester Current visit: Yes Status: Acute Admit to labor and delivery for PPROM. GBS prophylaxis due to unknown status and gestational age. Begin steroid course Plan of care discussed with Dr. Praetr Qualifiers: PROM onset of labor timing: unspecified duration between rupture of membranes and onset of labor Qualified Code(s): O42.913 - premature rupture of membranes, unspecified as to length of time between rupture and onset of labor, third trimester (3) GBS screening not performed Current visit: Yes Status: Acute GBS prophylaxis with penicillin G every 4 hours until delivery (4) History of biliary duct stent placement Current visit: Yes Status: Acute Follow-up with [facility] as needed (5) NST (non-stress test) reactive Current visit: No Status: Acute FHR 145 bpm, moderate variability, +15 x 15 accelerations, no decelerations. History of Present Illness Chief complaint: SROM at 34w3d HPI: Ms. Ding is a 23 year old female G1 at 34w4d who presents today with complaint of possible SROM at 0015, clear fluid. Patient states she felt a "pop" and started leaking fluid. She reports positive movement and reports some spotting for the past day or two. She has received care with Dr. Morales throughout this . She has had an uncomplicated course but did have an elevated 3-hour GTT and is supposed to be on a diabetic diet. Blood type O+ GBS unknown due to gestational age HbSAG negative RPR negative HIV negative Rubella Immune Varicella Immune Past Med Surg Social Fam HX - Past Medical History Medical history: other Additional medical history: biliary stent Psychiatric history: anxiety - Past Surgical History Surgical History: cholecystectomy, orthopedic, other, other Additional surgical history: BILARY STENT PLACED, LEFT KNEE SURGERY, T&A - Social History Smoking Status: Never smoker Smokeless Tobacco Status: No Alcohol use: none Drug use: none Current living situation: Home - Independent, With Family Activity Level: Independent ambulation Recent Out of Country Travel Within the Last 8 Weeks: No Exposure or Possible Exposure to Illness During Travel: No - Family History Mother Adopted: No Family Member Ethnicity: Non- Living Status: Still Living Hx Family Cardiac Disorders: No Hx Family Respiratory Disorders: No Hx Family Cancer: Yes (CERVICAL/uterine) Hx Family GI Disorders: No Hx Family Endocrine Disorder: Yes (THYROID PROBLEMS) Hx Family Neuromuscular Disorders: No Hx Family Neurologic Disorders: No Hx Family HEENT Disorders: No Hx Family Autoimmune Disorders: No Father Living Status: Still Living Hx Family Cardiac Disorders: Yes (HTN) Hx Family Respiratory Disorders: No Hx Family Cancer: No Hx Family GI Disorders: No Hx Family Endocrine Disorder: Yes (type II diabetes) Hx Family Neuromuscular Disorders: No Hx Family Neurologic Disorders: No Hx Family HEENT Disorders: No Hx Family Autoimmune Disorders: No Obstetrical History - Pregnancies : 1 Para: 0 Term: 0 : 0 Ab's: 0 Livin Medications and Allergies Caplet 1 tab PO DAILY 10/06/18 [History] Allergy/AdvReac Type Severity Reaction Status Date / Time cephalexin [From Keflex] Allergy Rash Verified 02/12/19 21:39 Review of System OB All systems PM: reviewed and no additional remarkable complaints except as stated Exam - Constitutional Constitutional: well developed, well nourished, no acute distress, average body habitus - HEENT HEENT: Normocephaly - Neck Neck exam: full ROM, normal inspection - Lungs Respiratory exam: CTAB - Cardiovascular Cardiovascular exam: RRR, +S1, +S2 - Breasts Breast: bilateral: normal - Abdomen Abdomen: Present: bowel sounds normal, gravid, non tender - Extremities Extremities exam: full ROM, normal capillary refill, normal inspection Deep Tendon Reflex Grade: 2+ Normal - Vulva Vulva: bilateral: normal - Vagina Vagina: Present: normal moisture - Cervix Dilation: 1 Effacement: 50 Station: -1 - Uterus Uterus exam: Present: normal size - Anus/Rectum Anus/Rectum: Present: normal perianal skin Results Abnormal lab results Trace (Negative) H 02/24/19 00:42 3-5 per hpf (0-3) H 02/24/19 00:42 Ur Squamous Epith Cells Many per lpf (None-Few) H 02/24/19 00:42 All other labs normal. - VTE Reasons for not Prescribing Prophylaxis: Treatment not Indicated - Low risk for VTE
[2019-02-24] MEDS ORDERED: Betamethasone Acet/SodPhos 30 MG/5 ML VIAL IM SCH (02:00)
[2019-02-24] MEDS: Ringers Solution, Lactated 1,000 ML IVC SCH ×2 (03:34→12:05)
[2019-02-24 04:22] LABS: Basophils % 0.3 %; Eosinophils # 0.1 K/mcL (0.0-0.6); Eosinophils % 0.9 %; Hematocrit 34.8 % (35.3-44.9); Hemoglobin 11.4 g/dL (11.5-15.4); Immature Granulocytes % 0.5 % (0-4); Lymphocytes # 2.5 K/mcL (0.6-4.6); Lymphocytes % 16.5 %; Mean Corpuscular HGB Conc 32.8 g/dL (31.6-35.5); Mean Corpuscular Hemoglobin 29.1 pg (28.0-33.3); Mean Corpuscular Volume 88.8 fL (83.0-100.0); Mean Platelet Volume 10.6 fL (9.4-12.4); Monocytes # 1.1 K/mcL (0.0-1.3); Monocytes % 7.1 %; Neutrophils # 11.2 K/mcL (1.6-8.9); Nucleated Red Blood Cells 0.1 /100 WBC (0); Platelet Count 307 K/mcL (140-400); Red Blood Count 3.92 M/mcL (3.82-4.97); Segmented Neutrophils % 74.7 %
[2019-02-24 05:51] LABS: Candida DNA Not Detected (Not Detect); Gardnerella DNA Not Detected (Not Detect); Trichomonas DNA Not Detected (Not Detect)
[2019-02-24] MEDS: Penicillin G Potassium 2,500,000 UNIT in 0.9 % Sodium Chloride 100 ML IVPB SCH ×2 (07:46→12:04)
[2019-02-24 08:40] LABS: Creatinine,Urine 111 mg/dL; Protein/Creatinine Ratio,Urine 0.17 mg/mg (0.00-0.20)
[2019-02-24 08:41] LABS: Alanine Aminotransferase 8 Units/L (7-52); Aspartate Amino Transferase 16 Units/L (13-39); BUN/Creatinine Ratio 15 (6-26); Blood Urea Nitrogen 14 mg/dL (6-20); Lactate Dehydrogenase 196 Units/L (140-271); Uric Acid 6.4 mg/dL (2.3-7.6); eGFR For African Americans > 60 (> 60); eGFR For Non-African Americans > 60 (> 60)
[2019-02-24] MEDS ORDERED: *HR* FentaNYL (PF) 100 MCG/2 ML VIAL EP ONE (09:05)
--- NOTE | 2019-02-24 09:08 | Anesthesia Evaluation PreOp ---
Date of Encounter: 02/24/19 Time of Encounter: 09:06 - Past History Planned Operation: abdon Cardiac History: Denies any Significant Hx Pulmonary History: Denies Any Significant HX PRODUCTION SOUND MIXER History: Denies Any Significant HX Other Medical History: Hepatic (biliary stent), GERD Anesthesia History: No Prior Anesthetic Complications, Past Anesthesia (ag, Knee, tonsil) : Yes Test: Positive Alcohol Use: none Drug use: none Medications and Allergies Caplet 1 tab PO DAILY 10/06/18 [History] Allergy/AdvReac Type Severity Reaction Status Date / Time cephalexin [From Keflex] Allergy Rash Verified 02/12/19 21:39 - Meds/Allergy Pre-op Review Medications Reviewed: Yes Allergies Reviewed: No Beta Blockers on Current Med List: No Anesthesia Results - Labs 02/24/19 03:20 02/24/19 03:20 Anesthesia Exam 140/93, 102 16 fht 131 Height: 5'2" Weight: 77 NPO (# of Hours): 4 Pain Scale: 6 Pain Scale Used: Numeric (1 - 10) - HEENT Pupil (Motor): Pupils equal Mallampati: II Teeth: Normal Oral Opening: Greater than 3 - PRODUCTION SOUND MIXER PRODUCTION SOUND MIXER Motor: Normal RUE, Normal LUE, Normal RLE, Normal LLE, Normal Face PRODUCTION SOUND MIXER Sensory: Normal: RUE, LUE, RLE, LLE, Face - Cardiac Rhythm: Regular Murmur: None - Pulmonary Breath Sounds: bilateral Clear Respiratory Effort: Symmetrical Anesthesia Assess/Plan ASA Score: 2 Level of consciousness: Cooperative Anesthetic Plan: Epidural (risks discusse, questions answered, consented) Monitoring Plan: Standard Monitors Recovery Plan: Other
[2019-02-24] MEDS ORDERED: *HR* FentaNYL (PF) 100 MCG/2 ML VIAL ONE (09:09)
[2019-02-24] MEDS ORDERED: Epidural Premix (fent/bupiv) 110 ML EP SCH (09:15)
--- NOTE | 2019-02-24 09:38 | Anesthesia Procedures ---
Date of Encounter: 02/24/19 Time of Encounter: 09:36 Procedures: Anesthesia - Epidural/Spinal Patient ID/Chart reviewed: Yes Patient examined: Yes OB Eval: Gestational age: 34 OB Eval: : 1 OB Eval: Hx Para: 0 OB Eval: Dilated at (cm): 4 OB Eval: Contractions: Non-stressed pattern Consent Obtained: Yes Supplemental Oxygen: None/Room Air Site Prep: Aseptic Technique, Sterile prep and drape, 0.5% Chlorhexidine/Alcohol Patient position: upright Local Anesthetic: Lidocaine 1% Amount of Local Anesthetic used: 3 Touhy Needle Gauge: 18 Touhy Needle Depth (cm): 6 Catheter Depth at Skin (cm): 15 Test Dose (1.5% Lido + Epi): Volume given (mls): 3 Test Dose Result: Negative Loading Dose: Fentanyl (mcg): 100 Loading Dose: Other: ropivacaine 0.2% 5cc Loading Dose Administered: Thru Touhy Needle Infusion Med: 0.125% Bupivacaine w/ 2 mcg/ml Fentanyl Infusion Rate (mls/hr): 15 (pcea 5cc q30") Catheter Secured in Place: Tegaderm Interspace Used: L2-L3 Loss of Resistance (DANIEL): Yes Blood: No CSF: No Paresthesia: No Procedure: aseptic, tolerated well, VSS, effective Vitals + FHT's: 138/78 88 16 fht 132
[2019-02-24] MEDS ORDERED: Oxytocin 20 units/ LR 1000 mL 20 UNIT/1,000 ML BAG IVC ONE ×2 (13:41→15:56)
--- NOTE | 2019-02-24 14:57 | OB/GYN Procedure Note ---
Delivery - Delivery Date: 02/24/19 Provider: Perla Weber Intrapartum events: none Delivery induction: none Delivery monitor: external uterine, internal FHT Anesthesia: epidural Quantitated Blood Loss: 100 - (s) A Infant Delivery Date: 02/24/19 Delivery Time: 14:03 Position: HAI Route of delivery: Gender: Female Viability: Viable Pounds: 4 Ounces: 9 Weight Gram: 2.06 kg at 1 minute: 8 at 5 mins: 8 Shoulder Dystocia: not encountered Specimens collected: cord blood Placenta: spontaneous Cord: nuchal cord, 3 umbilical vessels, nuchal reduced - Repair Episiotomy: none Laceration Description: None - Complications Delivery complications: none - Disposition Mom disposition: stable in LDR [place] disposition: stable in LDR - Comments Comments: Pt presented following PPROM. She was given a dose of celestone and an epidural as needed for pain. She progressed normally to over intact perineum for viable female weighing 4lbs 9oz with apgars 8 at one minute and 8 at five minutes. After pulsations ceased the cord was doubly clamped and cut by the father of the baby. The placenta delivered spontaneous and intact. No lacerations noted. EBL 100ml. Mother and baby stable in DR following .
[2019-02-24 16:19] LABS: Basophils % 0.1 %; Segmented Neutrophils % 87.8 %
[2019-02-24 16:21] LABS: Hemoglobin 11.7 g/dL (11.5-15.4); Immature Granulocytes % 0.8 % (0-4); Lymphocytes % 6.2 %; Mean Corpuscular HGB Conc 33.4 g/dL (31.6-35.5); Mean Corpuscular Volume 89.7 fL (83.0-100.0); Mean Platelet Volume 10.4 fL (9.4-12.4); Monocytes # 1.5 K/mcL (0.0-1.3); Monocytes % 5.1 %; Platelet Count 292 K/mcL (140-400); Red Cell Distribution Width 12.9 % (11.5-14.5); White Blood Count 29.8 K/mcL (4.3-11.1)
[2019-02-24 16:22] LABS: Lymphocytes # 1.9 K/mcL (0.6-4.6); Neutrophils # 26.2 K/mcL (1.6-8.9)
[2019-02-24 16:41] LABS: Alanine Aminotransferase 9 Units/L (7-52); Aspartate Amino Transferase 20 Units/L (13-39); BUN/Creatinine Ratio 17 (6-26); Blood Urea Nitrogen 10 mg/dL (6-20); Lactate Dehydrogenase 250 Units/L (140-271); Uric Acid 5.9 mg/dL (2.3-7.6); eGFR For African Americans > 60 (> 60); eGFR For Non-African Americans > 60 (> 60)
[2019-02-24 16:51] LABS: Platelet Estimate Normal (Normal)
[2019-02-24] MEDS ORDERED: NIFEdipine 10 MG CAPSULE PO ONE ×3 (19:17→19:41)
[2019-02-24] MEDS ORDERED: Ibuprofen 600 MG TABLET PO PRN (19:38)
[2019-02-24] MEDS ORDERED: Acetaminophen 325 MG TABLET PO PRN (19:38)
[2019-02-24] MEDS ORDERED: Oxytocin 20 units/ LR 1000 mL 20 UNIT/1,000 ML BAG IVC SCH (19:38)
[2019-02-24] MEDS ORDERED: Magnesium Sulfate 20 gm/500mL 20 GM/500 ML IV.SOLN IVC SCH (19:45)
[2019-02-24] MEDS ORDERED: Calcium Gluconate 1,000 MG/10 ML VIAL IV PRN (19:45)
--- NOTE | 2019-02-24 19:46 | Event Note ---
Date of Encounter: 02/24/19 Time of Encounter: 19:46 I was told of the patient's labile pressures on , she was running mild to severe ranges. At the time, I was told, she had 162/99. I reviewed her vitals while she was on L&D and there was a range from mild to severe pressures. Tox labs are normal including pr-cr ratio. I initially gave her Procardia 10mg x 1 and her pressures are now normal. I wanted to start her on Mg but I'll be holding off for now. We'll repeat tox labs in the AM if she becomes hypertensive again. BP currently been monitored.
[2019-02-25] MEDS ORDERED: Benzocaine/Menthol 56 GM AEROSOL SPRAY TP PRN (08:27)
[2019-02-25] MEDS ORDERED: Prenatal Vit/FA 1 EACH TABLET PO SCH (09:00)
[2019-02-25 10:54] LABS: Basophils % 0.1 %; Hematocrit 30.5 % (35.3-44.9); Lymphocytes # 2.6 K/mcL (0.6-4.6); Lymphocytes % 12.4 %; Mean Corpuscular HGB Conc 32.5 g/dL (31.6-35.5); Mean Corpuscular Volume 89.4 fL (83.0-100.0); Mean Platelet Volume 10.3 fL (9.4-12.4); Monocytes # 1.3 K/mcL (0.0-1.3); Monocytes % 6.1 %; Platelet Count 258 K/mcL (140-400); Red Blood Count 3.41 M/mcL (3.82-4.97); Red Cell Distribution Width 13.2 % (11.5-14.5); Segmented Neutrophils % 80.4 %; White Blood Count 21.2 K/mcL (4.3-11.1)
[2019-02-25 10:56] LABS: Hemoglobin 9.9 g/dL (11.5-15.4)
--- NOTE | 2019-02-25 10:58 | OB/GYN Progress Note ---
Date of Encounter: 02/25/19 Time of Encounter: 10:54 - Assessment and Plan (1) Vaginal delivery Current Visit: Yes Status: Acute Continue routine care anticipate discharge home tomorrow (2) Breast feeding status of mother Current Visit: Yes Status: Acute support prn Subjective - Subjective Principal diagnosis: Status post vaginal delivery Interval history: Patient is day 1 following a vaginal delivery. Patient denies any pain at this time. Lab work pending. Patient reports: appetite normal, voiding normally, pain well controlled, ambulating normally [place]: in NICU (on CPAP), nursing well (pumping breast milk ) Objective - Latest Vital Signs Latest vital signs: Vital Signs Temp Pulse Pulse Resp BP Pulse Ox 02/25/19 08:30 98.3 F 81 16 128/89 02/25/19 04:00 97.7 F 78 14 136/92 99 02/25/19 01:55 71 14 143/93 97 02/25/19 00:00 69 136/88 02/24/19 22:00 100 126/85 02/24/19 21:30 86 117/74 02/24/19 21:00 99 116/76 02/24/19 20:40 79 117/77 02/24/19 20:20 97.9 F 67 14 141/92 98 02/24/19 19:40 98.5 F 62 14 157/98 98 02/24/19 18:30 58 16 162/99 98 02/24/19 17:20 98.1 F 59 16 136/87 97 02/24/19 16:23 97.6 F 65 65 16 150/99 Intake and Output 02/24/19 02/25/19 02/25/19 23:59 07:59 15:59 Output Total 700 / 700 1000 / 1000 Balance -700 / 400 -1000 / -1000 Output: Urine 700 / 700 1000 / 1000 Other: Weight 74.389 kg Patient Weight 02/25/19 23:59 Weight 74.389 kg - Exam Lungs: bilateral: normal Chest: Normal S1, Normal S2 Extremities: Present: normal Abdomen: Present: normal appearance, soft Uterus: Present: normal, firm Uterus Position: At Umbilicus, Midline - Labs Labs: Laboratory Results - last 24 hr 02/24/19 02/24/19 15:47 15:47 WBC 29.8 H D RBC 3.90 Hgb 11.7 Hct 35.0 L MCV 89.7 MCH 30.0 MCHC 33.4 RDW 12.9 Plt Count 292 MPV 10.4 Immature Gran % 0.8 Seg Neutrophils % 87.8 Lymphocytes % 6.2 Monocytes % 5.1 Eosinophils % 0.0 Basophils % 0.1 Neutrophils # 26.2 H Lymphocytes # 1.9 Monocytes # 1.5 H Eosinophils # 0.0 Basophils # 0.0 Platelet Estimate Normal BUN 10 Creatinine 0.58 L Est GFR ( Amer) > 60 Est GFR (Non-Af Amer) > 60 BUN/Creatinine Ratio 17 Uric Acid 5.9 AST 20 ALT 9 Lactate Dehydrogenase 250
[2019-02-25 11:11] LABS: Alanine Aminotransferase 10 Units/L (7-52); Aspartate Amino Transferase 19 Units/L (13-39); BUN/Creatinine Ratio 20 (6-26); Blood Urea Nitrogen 17 mg/dL (6-20); Lactate Dehydrogenase 219 Units/L (140-271); Uric Acid 6.1 mg/dL (2.3-7.6); eGFR For African Americans > 60 (> 60); eGFR For Non-African Americans > 60 (> 60)
[2019-02-25 13:14] VITALS: BP 124/84
--- NOTE | 2019-02-25 13:30 | Discharge Summary ---
Date of Encounter: 02/25/19 Time of Encounter: 13:27 - Discharge Diagnosis (1) Vaginal delivery Priority: Primary Status: Acute Comments: continue routine care discharge home today per patient request follow up with Dr. Frias in 4-6 weeks (2) Breast feeding status of mother Priority: Secondary Status: Acute Comments: support prn - Discharge Medications Prescriptions: Continued Caplet 1 tab PO DAILY Home Medications: Caplet 1 tab PO DAILY 10/06/18 [History] Allergies/Adverse Reactions: Allergy/AdvReac Type Severity Reaction Status Date / Time cephalexin [From Keflex] Allergy Rash Verified 02/12/19 21:39 Data Procedures and tests throughout hospitalization: Laboratory Tests 02/24/19 02/24/19 02/24/19 00:42 00:42 02:00 WBC RBC Hgb Hct MCV MCH MCHC RDW Plt Count MPV Immature Gran % Seg Neutrophils % Lymphocytes % Monocytes % Eosinophils % Basophils % Neutrophils # Lymphocytes # Monocytes # Eosinophils # Basophils # Nucleated RBCs/100 WBC Platelet Estimate BUN Creatinine Est GFR ( Amer) Est GFR (Non-Af Amer) BUN/Creatinine Ratio Uric Acid AST ALT Lactate Dehydrogenase Urine Color Yellow Urine Clarity Clear Urine pH 6.0 Ur Specific [place] 1.017 Urine Protein Negative Urine Glucose (UA) Normal Urine Ketones Negative Urine Blood Trace H Urine Nitrite Negative Urine Bilirubin Negative Urine Urobilinogen Normal Ur Leukocyte Esterase Negative Urine Microscopic RBC 0-3 Urine Microscopic WBC 3-5 H Ur Squamous Epith Cells Many H Urine Bacteria None Seen Hyaline Casts None Seen Ur Culture Indicated? NO Urine Creatinine 111 Protein/Creatinin Ratio 0.17 Urine Total Protein 19 H Urine Opiates Screen Negative Ur Buprenorphine Scrn Negative Ur Barbiturates Screen Negative Ur Phencyclidine Scrn Negative Ur Amphetamines Screen Negative U Benzodiazepines Scrn Negative Urine Cocaine Screen Negative U Marijuana (THC) Screen Negative Ur Drug Screen Interp See Below Emmanuelle species DNA Not Detected Gardnerella DNA Probe Not Detected Trichomonas DNA Probe Not Detected 02/24/19 02/24/19 02/24/19 03:20 03:20 15:47 WBC 15.0 H 29.8 H D RBC 3.92 3.90 Hgb 11.4 L 11.7 Hct 34.8 L 35.0 L MCV 88.8 89.7 MCH 29.1 30.0 MCHC 32.8 33.4 RDW 13.0 12.9 Plt Count 307 292 MPV 10.6 10.4 Immature Gran % 0.5 0.8 Seg Neutrophils % 74.7 87.8 Lymphocytes % 16.5 6.2 Monocytes % 7.1 5.1 Eosinophils % 0.9 0.0 Basophils % 0.3 0.1 Neutrophils # 11.2 H 26.2 H Lymphocytes # 2.5 1.9 Monocytes # 1.1 1.5 H Eosinophils # 0.1 0.0 Basophils # 0.0 0.0 Nucleated RBCs/100 WBC 0.1 H Platelet Estimate Normal BUN 14 Creatinine 0.91 Est GFR ( Amer) > 60 Est GFR (Non-Af Amer) > 60 BUN/Creatinine Ratio 15 Uric Acid 6.4 AST 16 ALT 8 Lactate Dehydrogenase 196 Urine Color Urine Clarity Urine pH Ur Specific [place] Urine Protein Urine Glucose (UA) Urine Ketones Urine Blood Urine Nitrite Urine Bilirubin Urine Urobilinogen Ur Leukocyte Esterase Urine Microscopic RBC Urine Microscopic WBC Ur Squamous Epith Cells Urine Bacteria Hyaline Casts Ur Culture Indicated? Urine Creatinine Protein/Creatinin Ratio Urine Total Protein Urine Opiates Screen Ur Buprenorphine Scrn Ur Barbiturates Screen Ur Phencyclidine Scrn Ur Amphetamines Screen U Benzodiazepines Scrn Urine Cocaine Screen U Marijuana (THC) Screen Ur Drug Screen Interp Emmanuelle species DNA Gardnerella DNA Probe Trichomonas DNA Probe 02/24/19 02/25/19 02/25/19 15:47 10:37 10:37 WBC 21.2 H RBC 3.41 L Hgb 9.9 L D Hct 30.5 L MCV 89.4 MCH 29.0 MCHC 32.5 RDW 13.2 Plt Count 258 MPV 10.3 Immature Gran % 1.0 Seg Neutrophils % 80.4 Lymphocytes % 12.4 Monocytes % 6.1 Eosinophils % 0.0 Basophils % 0.1 Neutrophils # 17.0 H Lymphocytes # 2.6 Monocytes # 1.3 Eosinophils # 0.0 Basophils # 0.0 Nucleated RBCs/100 WBC Platelet Estimate BUN 10 17 Creatinine 0.58 L 0.86 Est GFR ( Amer) > 60 > 60 Est GFR (Non-Af Amer) > 60 > 60 BUN/Creatinine Ratio 17 20 Uric Acid 5.9 6.1 AST 20 19 ALT 9 10 Lactate Dehydrogenase 250 219 Urine Color Urine Clarity Urine pH Ur Specific [place] Urine Protein Urine Glucose (UA) Urine Ketones Urine Blood Urine Nitrite Urine Bilirubin Urine Urobilinogen Ur Leukocyte Esterase Urine Microscopic RBC Urine Microscopic WBC Ur Squamous Epith Cells Urine Bacteria Hyaline Casts Ur Culture Indicated? Urine Creatinine Protein/Creatinin Ratio Urine Total Protein Urine Opiates Screen Ur Buprenorphine Scrn Ur Barbiturates Screen Ur Phencyclidine Scrn Ur Amphetamines Screen U Benzodiazepines Scrn Urine Cocaine Screen U Marijuana (THC) Screen Ur Drug Screen Interp Emmanuelle species DNA Gardnerella DNA Probe Trichomonas DNA Probe Labs on day of discharge: Labs from last 24 hours 02/25/19 02/25/19 02/24/19 10:37 10:37 15:47 WBC 21.2 H RBC 3.41 L Hgb 9.9 L D Hct 30.5 L MCV 89.4 MCH 29.0 MCHC 32.5 RDW 13.2 Plt Count 258 MPV 10.3 Immature Gran % 1.0 Seg Neutrophils % 80.4 Lymphocytes % 12.4 Monocytes % 6.1 Eosinophils % 0.0 Basophils % 0.1 Neutrophils # 17.0 H Lymphocytes # 2.6 Monocytes # 1.3 Eosinophils # 0.0 Basophils # 0.0 Platelet Estimate BUN 17 10 Creatinine 0.86 0.58 L Est GFR ( Amer) > 60 > 60 Est GFR (Non-Af Amer) > 60 > 60 BUN/Creatinine Ratio 20 17 Uric Acid 6.1 5.9 AST 19 20 ALT 10 9 Lactate Dehydrogenase 219 250 02/24/19 15:47 WBC 29.8 H D RBC 3.90 Hgb 11.7 Hct 35.0 L MCV 89.7 MCH 30.0 MCHC 33.4 RDW 12.9 Plt Count 292 MPV 10.4 Immature Gran % 0.8 Seg Neutrophils % 87.8 Lymphocytes % 6.2 Monocytes % 5.1 Eosinophils % 0.0 Basophils % 0.1 Neutrophils # 26.2 H Lymphocytes # 1.9 Monocytes # 1.5 H Eosinophils # 0.0 Basophils # 0.0 Platelet Estimate Normal BUN Creatinine Est GFR ( Amer) Est GFR (Non-Af Amer) BUN/Creatinine Ratio Uric Acid AST ALT Lactate Dehydrogenase Date of admission: 02/24/19 00:58 Primary care physician: Adri Aguilera CNP Consults: 02/24/19 19:38 Consult to [facility] [CONS] Routine Comment: Vaginal delivery, consult needed Discharging clinician: Nazia Ackerman Anticipated date of discharge: 02/25/19 - Patient Status Disposition: Home, Self-Care Condition: Good - Discharge Instructions Follow Up With: Adri Aguilera CNP [Primary Care Provider] - Arlet Morales MD [Partnered Physician] - 03/24/19 10:30 am - Diet and Activity Activity: increase activity as tolerated Diet: regular diet Hospital Course Reason for admission: ROM (PPROM) Delivery: Episiotomy: none Laceration: none Other procedures: none complications: none Discharge diagnosis: delivery baby: female Time Attestation: Total time spent providing and/or coordinating discharge services: Time Spent: Less than 30 minutes Exam - Constitutional Vitals: Temp Pulse Resp BP Pulse Ox 98.3 F 82 16 124/84 98 02/25/19 08:30 02/25/19 12:00 02/25/19 12:00 02/25/19 12:00 02/25/19 12:00 General appearance IM: A&O X 3, pleasant, answers questions appropriately
== END 2019-02-25 14:17 | disposition home or self-care (01) | DRG 807 ==
LOC: 1NENULAB → OBSVTOIN 00:58 → 1NENUOBS 19:37
PROVIDERS: ADMIT Registered Nurse; ATTEND Registered Nurse

== ENCOUNTER → 2022-05-19 03:38 | Observation (INO) ==
[2022-05-18 23:30] LABS: Bilirubin,Urine Negative (Negative); Blood,Urine Negative (Negative); Clarity,Urine Clear (Clear); Color,Urine Colorless (Yellow); Glucose,Urine (UA) Normal (Normal); Ketones,Urine Negative (Negative); Leukocyte Esterase,Urine Negative (Negative); Nitrite,Urine Negative (Negative); PH,Urine 6.5 pH Units (5.0-8.0); Protein,Urine Negative (Neg-Trace); Specific Gravity,Urine 1.007 (1.010-1.025); Urobilinogen,Urine Normal (Normal)
[~2022-05-19 03:38] MED LIST changes: +Betamethasone Acet/SodPhos 30 MG/5 ML VIAL IM SCH; -Ringers Solution, Lactated 1,000 ML IVC SCH; -Ringers Solution, Lactated 1,000 ML ONE; +Terbutaline 1 MG/ML VIAL SQ ONE
== END | disposition home or self-care (01) ==
LOC: 1NENULAB
PROVIDERS: ADMIT Advanced Practice Midwife; ATTEND Advanced Practice Midwife

== ENCOUNTER → 2022-05-20 12:52 | Observation (INO) ==
[~2022-05-20 12:52] MED LIST changes: -Terbutaline 1 MG/ML VIAL SQ ONE
[2022-05-20 13:54] LABS: Candida DNA Not Detected (Not Detect); Gardnerella DNA DETECTED (Not Detect); Trichomonas DNA Not Detected (Not Detect)
== END | disposition home or self-care (01) ==
LOC: 1NENULAB
PROVIDERS: ADMIT Advanced Practice Midwife; ATTEND Advanced Practice Midwife

== ENCOUNTER 2022-05-22 12:56 | Observation (INO) ==
[2022-05-22 13:30] LABS: Bacteria,Urine Few per hpf (None-Few); Bilirubin,Urine Negative (Negative); Blood,Urine Negative (Negative); Clarity,Urine Clear (Clear); Color,Urine Colorless (Yellow); Glucose,Urine (UA) Normal (Normal); Ketones,Urine Negative (Negative); Leukocyte Esterase,Urine Negative (Negative); Mucus,Urine Few per lpf (None-Few); Nitrite,Urine Negative (Negative); Protein,Urine Negative (Neg-Trace); RBC,Urine 0-3 per hpf (0-3); Squamous Epithelial Cell,Urine Few per hpf (None-Few); Urobilinogen,Urine Normal (Normal); WBC,Urine 0-3 per hpf (0-3)
[2022-05-22 15:11] LABS: Candida DNA Not Detected (Not Detect); Gardnerella DNA Not Detected (Not Detect); Trichomonas DNA Not Detected (Not Detect)
== END 2022-05-22 16:34 | disposition home or self-care (01) ==
LOC: 1NENULAB
PROVIDERS: ADMIT Registered Nurse; ATTEND Registered Nurse

== ENCOUNTER 2022-06-02 04:29 | Observation (INO) ==
[2022-06-02 05:23] LABS: Bilirubin,Urine Negative (Negative); Blood,Urine Negative (Negative); Clarity,Urine Clear (Clear); Color,Urine Colorless (Yellow); Glucose,Urine (UA) Normal (Normal); Ketones,Urine Negative (Negative); Leukocyte Esterase,Urine Negative (Negative); Nitrite,Urine Negative (Negative); PH,Urine 6.5 pH Units (5.0-8.0); Protein,Urine Negative (Neg-Trace); Specific Gravity,Urine 1.011 (1.010-1.025); Urobilinogen,Urine Normal (Normal)
== END 2022-06-02 07:00 | disposition home or self-care (01) ==
LOC: 1NENULAB 04:29 → INTOOBSV 04:29
PROVIDERS: ADMIT Registered Nurse; ATTEND Registered Nurse